=== PATIENT | female | born 1950 | race Caucasian/White ===

== ENCOUNTER 2018-08-19 10:09 | Inpatient (IN) | payer MEDICARE, MEDICAID, SELFPAY ==
[2018-08-07 09:15] VITALS: BMI 25.2
[2018-08-19] VITALS (14 sets, daily range): BP systolic 88–124; BP diastolic 46–85; PULSE 58–103; RESP 14–20; TEMP 35.6–36.8; O2SAT 96–100; BMI 25.2
--- NOTE | 2018-08-19 | DI.RAD.S_ITS ---
PROCEDURE: XR PELVIS 1-2V INDICATIONS: TOTAL RIGHT HIP TECHNIQUE: 1 view of the lower pelvis acquired. COMPARISON: None. FINDINGS: Bones: Patient is status post right hip arthroplasty, with hardware components in expected positions. The hip joint appears congruent. The visualized bony structures appear intact. Soft tissues: Overlying postoperative changes are noted. No suspicious soft tissue densities. IMPRESSION: Post right hip arthroplasty with anatomic right hip alignment. Dictated by: Sean Carrillo M.D. on 08/19/2018 at 16:07 Approved by: Sean Carrillo M.D. on 08/19/2018 at 16:08
--- NOTE | 2018-08-19 | DI.RAD.S_ITS ---
PROCEDURE: XR HIP W PEL IF DONE RT 2V INDICATIONS: POST OPERATIVE RIGHT HIP TECHNIQUE: AP pelvis and lateral view of the right hip acquired. COMPARISON: None. FINDINGS: Bones: Patient is status post right hip arthroplasty, with hardware components in expected positions. The hip joint appears congruent. The visualized bony structures appear intact. Soft tissues: Overlying postoperative changes are noted. No suspicious soft tissue densities. IMPRESSION: Post right total hip arthroplasty with anatomic right hip alignment. Dictated by: Sean Carrillo M.D. on 08/19/2018 at 17:22 Approved by: Sean Carrillo M.D. on 08/19/2018 at 17:22
[2018-08-19] MEDS: INSULIN REGULAR 100 UNIT/ML 3 ML VIAL 6 UNIT SUBCUT (12:45)
[2018-08-19] MEDS: LACTATED RINGERS 1,000 ML 42 ML IV (12:47)
[2018-08-19] MEDS: VANCOMYCIN 1,000 MG/200 ML FROZ.PIGGY 200 MG IV (12:59)
[2018-08-19] MEDS: ACETAMINOPHEN 325 MG TABLET 975 MG PO ×2 (13:01→21:50)
[2018-08-19] MEDS: PREGABALIN 75 MG CAPSULE PO (13:02)
[2018-08-19] MEDS: CELECOXIB 200 MG CAPSULE PO (13:02)
--- NOTE | 2018-08-19 13:02 | PC.NURSE ---
Day shift: Not on AC unit at this time.
--- NOTE | 2018-08-19 13:23 | PM.PREOP ---
Pre-operative Note Interval Note Pre-op Check: Yes History & Physical Reviewed by Physician and Yes Exam Performed Changes: No
--- NOTE | 2018-08-19 13:28 | P.OP_ITS ---
Operative Date/Time/Diagnoses Date of procedure: 08/19/18 Time of procedure: 13:55 Pre-op diagnosis: right hip oa/avn Post-op diagnosis: same Procedure & Clinicians Procedure: Right total hip arthroplasty Same procedure as scheduled: Yes Indications: The patient has had progressively worsening right hip pain with radiographic changes consistent with arthritis. Non-operative management has failed and the patient has requested total hip replacement. The risks, benefits and alternatives to surgery were discussed with the patient prior to proceeding. Risks discussed included, but were not limited to, failure to relieve pain, leg length discrepancy, dislocation, stiffness, infection, nerve damage, deep venous thrombosis, pulmonary embolism, stroke, coma, heart attack, permanent paralysis and , as well as the potential need for eventual revision of the prosthetic. Surgeon: Rebecca Stiles Dipping Machine Operator: Helena Rodas Anesthesia Type: General and Spinal Operative Notes Findings: soft bone, severe osteoarthritis Closure Type: primary Specimen(s): none sent Implants & Drains: Stiles and Nephew R3 54 multihole cup with 1 20mm screw, +0 36 head, anthology SO 7 Applied: drain(s) Estimated Blood Loss (mL): 250 Blood products transfused: none Procedure in detail: The patient was seen in the pre-operative area, where the patient identified the right hip as the operative site and this was marked with my initials. The patient received pre-operative antibiotics and was taken to the operating room and placed on the operative table in the left lateral decubitus position after satisfactory anesthesia. A time clock repairer out was performed. The right leg was prepared from the ankle to the iliac crest with ChloroPrep in the usual fashion and draped through sterile drapes. The hip was approached through an approximately 20 cm incision centered over the greater trochanter and curving gently posteriorly as it went proximally. This was carried sharply to the fascia melissa, which was divided and retracted with a self retaining retractor. The trochanteric bursa was excised with care being taken to avoid the sciatic nerve, which was identified and protected throughout the case. The short external rotators were incised and the capsulomuscular flap was raised and tagged for later repair. The hip was dislocated, and a femoral neck osteotomy performed approximately 15 mm above the lesser trochanter. Retractors were placed around the femur. The canal was opened with a box cutting osteotome, followed by a T handled reamer and a lateralizing reamer. The chili pepper broach was then used, followed by sequential broaching until there was good stability of the broach in the femur. Retractors were placed to expose the acetabulum. The labrum and central soft tissues were removed. There was severe wear of the acetabulum with some loss of the anterosuperior aspect. The true acetabulum was carefully identified and it was reamed until a stable AP engagement was achieved. With a 53 reamer there was good coverage and stability. Reaming was performed initially going up in 2 mm increments, then 1 mm increments until good bite was obtained with an odd sized reamer. The cup 1 mm larger than the last reamer was then inserted using the appropriate anteversion guides. The cup had good stability but there was some mild anterosuperior bone loss and a screw was used to stabilize the cup. An excellent bite was achieved. A trial neutral liner was placed. The broach was placed in the canal. A trial head and neck were then placed and the hip relocated and checked for leg length and stability. An intraoperative film confirmed the component position and no evidence of fracture. The patient was stable in the position of sleep, of squatting, and could be put through a range of motion with 45 degrees internal rotation without dislocation. At 90 degrees flexion, internal rotation to 70 was possible before dislocation. This was felt to be satisfactory and the appropriate components were opened, and the trials were removed. The acetabular liner was impacted into position. The final stem was then impacted into the prepared femoral canal. A brief Betadine soak was performed while trialing with head options. A +0 head was felt to best restore leg length and offset. The hip was meticulously irrigated with normal saline. Final femoral head was impacted onto the stem. The acetabulum was cleared of all material and the hip relocated one final time. The capsulomuscular flap was then repaired to the greater trochanter though an awl hole using the tag sutures. The short external rotators were repaired with a black braided nylon. A deep drain was placed and brought out anteriorly. The fascia melissa was closed with black braided nylon. The subcutaneous layer was closed with barbed sutures and SteriStrips. An Aquacel Ag dressing was applied and the patient was taken to recovery having tolerated the procedure well. Complications: none Condition: stable Disposition: Acute Care Plan for aftercare: The patient will be maintained on a standard total hip replacement protocol with weight bearing as tolerated and Posterior hip precautions. The patient will receive Aspirin and sequential compression devices for DVT prophylaxis. The patient will be discharged home when safe for the home environment.
[2018-08-19] MEDS: CEFAZOLIN 2 GM/100 ML FROZ.PIGGY IV (14:10)
--- NOTE | 2018-08-19 14:47 | SUR.OPER ---
Lateral on padded OR bed. Gel axillary roll. Arms secured on padded armboard with pillow supporting top arm. Padded hip positioner braces x4 - anterior and posterior chest and pelvis. Additional gel pad used anterior pelvis. Gel pad under bottom leg from knee to foot and secured with tape over sheet.
[2018-08-19] MEDS: BUPIVACAINE 0.25% W/ EPI VIAL 50 ML INJ (14:51)
[2018-08-19] MEDS: BUPIVACAINE LIPOSOME 266 MG/20 ML VIAL INJ (14:51)
[2018-08-19] MEDS: POVIDONE-IODINE 15 ML, SODIUM CHLORIDE 0.9% 250 ML TOP (14:52)
--- NOTE | 2018-08-19 18:03 | PM.CN ---
History of Present Illness Date Patient Seen: 08/19/18 Time Patient Seen: 18:04 Chief complaint: total hip arthroplasty right [id number] Reason for consult: uncontrolled IDDM Requesting provider: Rebecca Stiles Narrative: - THIS IS A 68-YEAR-OLD FEMALE FOR PAST MEDICAL HISTORY SIGNIFICANT FOR CAD, HYPERTENSION, INSULIN-DEPENDENT DIABETES, COPD, POSSIBLE HEART FAILURE AND OSTEOARTHRITIS. - PATIENT WAS ADMITTED TO THE HOSPITAL FOR RIGHT HIP REPLACEMENT DUE TO SEVERE JOINT DEGENERATION FROM OSTEOARTHRITIS. - WE ARE CONSULTED ON THE CASE DUE TO UNCONTROLLED DIABETES. REPORTEDLY PATIENT HEMOGLOBIN A1C WENT UP FROM 7-9. - HOWEVER ACCORDING TO THE PATIENT, AT HOME HER BLOOD SUGAR HAS BEEN RUNNING AROUND THE 150S. - SHE DENIES ANY POLYURIA OR POLYDIPSIA. NO CHANGE IN APPETITE. SHE STATED THAT SHE IS COMPLIANT. - SHE REPORTED THAT THE SHE DOES NOT DRINK ALCOHOL. SHE QUIT TOBACCO USE ABOUT 3 MONTHS AGO SO - SHE ALSO REPORTED THAT SHE WAS TOLD SHE HAD HEART FAILURE ABOUT 3 MONTHS AGO WELL. SHE DOES HAVE A AUTO INSPECTION SPECIALIST THAT SHE FOLLOWS WITH OUTPATIENT - AT THIS TIME SHE IS IN HER ROOM. SHE IS COMFORTABLE. SHE DENIES ANY SIGNIFICANT DISCOMFORT. - SHE HAD NO OTHER COMPLAINTS. [facility] Medical History Bed sore (Acute) COPD (chronic obstructive pulmonary disease) (Acute) Cataract fragments in both eyes following surgery (Acute) Chronic right hip pain (Acute) Constipation (Acute) Diarrhea (Acute) Echocardiogram abnormal (Acute ~11/27/17) Environmental allergies (Acute) Essential hypertension (Acute) Fatigue (Acute) Former smoker (Acute) Heart failure (Acute) History of UTI (Acute) History of pneumonia (Acute) Hyperlipidemia (Acute) terminal gauger supervisor (current) use of insulin (Acute) NYHA Class III cardiovascular function (Acute) Nausea (Acute) Nonischemic cardiomyopathy (Acute) Primary localized osteoarthrosis of pelvic region (Acute) Rash (Acute) Type 2 diabetes mellitus without complication (Acute) Unexplained weight gain (Acute) Unilateral primary osteoarthritis, right hip (Acute) Weakness (Acute) Surgical History History of (Acute) History of cardiac catheterization (Acute ~01/2018) History of tonsillectomy (Acute) Social History household members: none Smoking Status: Former smoker alcohol intake: never Meds Home Medications Medication Instructions Recorded Confirmed Type Lactobac 40-Bifido 3-S.thermop 1 cap PO DAILY 08/07/18 08/07/18 History [Probiotic] albuterol sulfate [Ventolin HFA] 2 inh INHALATION Q3-4H PRN 08/07/18 08/19/18 History atorvastatin [Lipitor] 40 mg PO BEDTIME 08/07/18 08/19/18 History budesonide-formoterol 2 puff INHALATION BID 08/07/18 08/19/18 History calcium carbonate [Calcium 600] 1 tab PO DAILY 08/07/18 08/07/18 History cholecalciferol (vitamin D3) 2,000 unit PO DAILY 08/07/18 08/07/18 History [Vitamin D3] furosemide 20 mg PO DAILY 08/07/18 08/19/18 History furosemide 40 mg PO DAILY PRN 08/07/18 08/19/18 History insulin aspart U-100 10 unit SUBCUT DAILY 08/07/18 08/19/18 History insulin glargine 60 unit SUBCUT DAILY 08/07/18 08/19/18 History lisinopril 5 mg PO BID 08/07/18 08/19/18 History metoprolol succinate 100 mg PO BID 08/07/18 08/19/18 History omega 5-pep-ndr-fish oil [Fish Oil] 1 cap PO DAILY 08/07/18 08/07/18 History ondansetron HCl 4 mg PO PRN PRN 08/07/18 08/19/18 History spironolactone 25 mg PO DAILY 08/07/18 08/19/18 History tiotropium bromide [Spiriva with 1 cap INHALATION DAILY 08/07/18 08/19/18 History HandiHaler] tramadol 50 - 100 mg PO Q8H PRN 08/07/18 08/19/18 History Allergies Allergy/AdvReac Type Severity Reaction Status Date / Time digoxin Allergy Severe Throat Verified 08/07/18 11:04 closes, coughs Review of Systems Review of Systems All systems reviewed & are unremarkable except as noted in HPI and below Exam Vital Signs (past 8 hours): - 08/19/18 12:27 08/19/18 16:41 08/19/18 16:45 Temperature 98.2 F 97.2 F L Pulse Rate 82 67 66 Respiratory Rate 16 14 15 Blood Pressure 124/64 103/53 L 88/46 L Pulse Oximetry 96 98 99 08/19/18 16:50 08/19/18 17:04 08/19/18 17:25 Temperature 96.1 F L Pulse Rate 79 71 64 Respiratory Rate 15 16 16 Blood Pressure 98/55 L 102/59 L 119/85 Pulse Oximetry 99 98 99 08/19/18 17:45 Temperature 96.5 F L Pulse Rate 64 Respiratory Rate 16 Blood Pressure 105/58 L Pulse Oximetry 96 Oxygen Delivery Method Room Air Narrative Exam Narrative: NO ACUTE DISTRESS. PATIENT IS ALERT ORIENTED X3. VITAL SIGNS STABLE HEAD ATRAUMATIC NORMOCEPHALIC NECK : SUPPLE WITHOUT ADENOPATHY EYE: EOMI, PERRLA, NORMAL CONJUNCTIVA CHEST: REGULAR RATE.. NO RUBS. PMI IS NON DISPLACED. NORMAL S1-S2; NO HEAVE PULMONARY: DECREASED BS OVER THE BASES. MILD BIBASILAR CRACKLES NOTED; NO INCREASED DULLNESS TO PERCUSSION; NO WHEEZING ABDOMEN: SOFT. NONTENDER. BOWEL SOUNDS ARE PRESENT IN ALL 4 QUADRANT. NO GUARDING. NO MASS. EXTREMITIES: 1+ EDEMA. NONPITTING. NO CYANOSIS CLUBBING NOTED. A TONY DRAIN NOTED TO THE RIGHT HIP. SOME REDNESS NOTED AT THE SITE; BLOODY DRAINAGE NEURO: CRANIAL NERVES 2-12 GROSSLY INTACT. NO FOCAL NEUROLOGICAL DEFICIT NOTED. MSK: EXPECTED, DISCOMFORT WITH PASSIVE AND ACTIVE RANGE OF MOTION ON THE RIGHT. NO JOINT EFFUSION TO THE OTHER EXTREMITIES. ABLE TO MOVE ALL EXTREMITIES WITHOUT DIFFICULTIES SKIN: NORMAL FOR ETHNICITY; NO ECCHYMOSIS. NO LESION. GOOD TURGOR.; NO RASHES ; REDNESS NOTED ON THE RIGHT HIP. THERE IS A DRESSING ALSO NOTED COVERING A CLOSE SURGICAL INCISION. : NORMAL EXTERNAL GENITALIA. PSYCH : APPROPRIATE MOOD AND AFFECT. ALERT AWAKE ORIENTED X3 Objective Labs Labs: PRIOR LABS WERE REVIEWED AND ARE STABLE Assessment & Plan Plan: Assessment/Plan Narrative: STATUS POST RIGHT HIP TOTAL ARTHROPLASTY. THIS IS BEING MANAGED BY SURGERY. WILL MONITOR FOR SIGN OF ACUTE COMPLICATIONS. 5 W'S UNCONTROLLED DIABETES. HEMOGLOBIN A1C IS ABOUT 9. WE WILL RESTART ON BASAL INSULIN ONCE ABLE TO TOLERATE P.O. WE WILL ORDER INSULIN SLIDING SCALE. STRICT BLOOD SUGAR CONTROL DIABETIC DIET; CONSULT ASSURANCE ANALYST INDICATED. CONSULT SCHOOL AIDE IF NEEDED OBESITY. OUTPATIENT MANAGEMENT. LIFESTYLE CHANGES WERE RECOMMENDED COPD PER HISTORY. NO SIGN OR SYMPTOM OF ACUTE EXACERBATION. DUONEB TREATMENT NEEDED; SERIAL CHEST X-RAY OR ABG TO FOLLOW INDICATED POSSIBLE CHF PER HISTORY. LAST ECHOCARDIOGRAM RESULTS ON FILE SHOWING AN EJECTION FRACTION OF ABOUT 65%. THERE IS NO SIGNIFICANT VALVULOPATHY. NOT SURE OF THE ANAHEIM OF THIS DIAGNOSIS; THIS IS A NEW A POSSIBILITY PATIENT COULD HAVE HEART FAILURE WITH PRESERVED SYSTOLIC FUNCTION OR DIASTOLIC HEART FAILURE; MONITOR CLOSELY. KEEP ON TELE AT ALL TIME. STRICT I&OS. DAILY WEIGHT WITH SAME SCALE. POSSIBLE CAD PER HISTORY. TREATMENT ABOVE. HYPERTENSION PER HISTORY. CONTINUE HOME MEDICATIONS. PRN MEDICATIONS ARE INDICATED THANK YOU VERY MUCH FOR THIS CONSULT. WE WILL GLADLY FOLLOW WITH YOU.
--- NOTE | 2018-08-19 18:14 | P.CONS_ITS ---
History of Present Illness Date Patient Seen: 08/19/18 Time Patient Seen: 18:04 Chief complaint: total hip arthroplasty right [id number] Reason for consult: uncontrolled IDDM Requesting provider: Rebecca Stiles Narrative: - THIS IS A 68-YEAR-OLD FEMALE FOR PAST MEDICAL HISTORY SIGNIFICANT FOR CAD, HYPERTENSION, INSULIN-DEPENDENT DIABETES, COPD, POSSIBLE HEART FAILURE AND OSTEOARTHRITIS. - PATIENT WAS ADMITTED TO THE HOSPITAL FOR RIGHT HIP REPLACEMENT DUE TO SEVERE JOINT DEGENERATION FROM OSTEOARTHRITIS. - WE ARE CONSULTED ON THE CASE DUE TO UNCONTROLLED DIABETES. REPORTEDLY PATIENT HEMOGLOBIN A1C WENT UP FROM 7-9. - HOWEVER ACCORDING TO THE PATIENT, AT HOME HER BLOOD SUGAR HAS BEEN RUNNING AROUND THE 150S. - SHE DENIES ANY POLYURIA OR POLYDIPSIA. NO CHANGE IN APPETITE. SHE STATED THAT SHE IS COMPLIANT. - SHE REPORTED THAT THE SHE DOES NOT DRINK ALCOHOL. SHE QUIT TOBACCO USE ABOUT 3 MONTHS AGO SO - SHE ALSO REPORTED THAT SHE WAS TOLD SHE HAD HEART FAILURE ABOUT 3 MONTHS AGO WELL. SHE DOES HAVE A PLANT CLERK THAT SHE FOLLOWS WITH OUTPATIENT - AT THIS TIME SHE IS IN HER ROOM. SHE IS COMFORTABLE. SHE DENIES ANY SIGNIFICANT DISCOMFORT. - SHE HAD NO OTHER COMPLAINTS. [facility] Medical History Bed sore (Acute) COPD (chronic obstructive pulmonary disease) (Acute) Cataract fragments in both eyes following surgery (Acute) Chronic right hip pain (Acute) Constipation (Acute) Diarrhea (Acute) Echocardiogram abnormal (Acute ~11/27/17) Environmental allergies (Acute) Essential hypertension (Acute) Fatigue (Acute) Former smoker (Acute) Heart failure (Acute) History of UTI (Acute) History of pneumonia (Acute) Hyperlipidemia (Acute) intermediate card tender (current) use of insulin (Acute) NYHA Class III cardiovascular function (Acute) Nausea (Acute) Nonischemic cardiomyopathy (Acute) Primary localized osteoarthrosis of pelvic region (Acute) Rash (Acute) Type 2 diabetes mellitus without complication (Acute) Unexplained weight gain (Acute) Unilateral primary osteoarthritis, right hip (Acute) Weakness (Acute) Surgical History History of (Acute) History of cardiac catheterization (Acute ~01/2018) History of tonsillectomy (Acute) Social History household members: none Smoking Status: Former smoker alcohol intake: never Meds Home Medications Medication Instructions Recorded Confirmed Type Lactobac 40-Bifido 3-S.thermop 1 cap PO DAILY 08/07/18 08/07/18 History [Probiotic] albuterol sulfate [Ventolin HFA] 2 inh INHALATION Q3-4H PRN 08/07/18 08/19/18 History atorvastatin [Lipitor] 40 mg PO BEDTIME 08/07/18 08/19/18 History budesonide-formoterol 2 puff INHALATION BID 08/07/18 08/19/18 History calcium carbonate [Calcium 600] 1 tab PO DAILY 08/07/18 08/07/18 History cholecalciferol (vitamin D3) 2,000 unit PO DAILY 08/07/18 08/07/18 History [Vitamin D3] furosemide 20 mg PO DAILY 08/07/18 08/19/18 History furosemide 40 mg PO DAILY PRN 08/07/18 08/19/18 History insulin aspart U-100 10 unit SUBCUT DAILY 08/07/18 08/19/18 History insulin glargine 60 unit SUBCUT DAILY 08/07/18 08/19/18 History lisinopril 5 mg PO BID 08/07/18 08/19/18 History metoprolol succinate 100 mg PO BID 08/07/18 08/19/18 History omega 5-wgx-edp-fish oil [Fish Oil] 1 cap PO DAILY 08/07/18 08/07/18 History ondansetron HCl 4 mg PO PRN PRN 08/07/18 08/19/18 History spironolactone 25 mg PO DAILY 08/07/18 08/19/18 History tiotropium bromide [Spiriva with 1 cap INHALATION DAILY 08/07/18 08/19/18 History HandiHaler] tramadol 50 - 100 mg PO Q8H PRN 08/07/18 08/19/18 History Allergies Allergy/AdvReac Type Severity Reaction Status Date / Time digoxin Allergy Severe Throat Verified 08/07/18 11:04 closes, coughs Review of Systems Review of Systems All systems reviewed & are unremarkable except as noted in HPI and below Exam Vital Signs (past 8 hours): - 08/19/18 12:27 08/19/18 16:41 08/19/18 16:45 Temperature 98.2 F 97.2 F L Pulse Rate 82 67 66 Respiratory Rate 16 14 15 Blood Pressure 124/64 103/53 L 88/46 L Pulse Oximetry 96 98 99 08/19/18 16:50 08/19/18 17:04 08/19/18 17:25 Temperature 96.1 F L Pulse Rate 79 71 64 Respiratory Rate 15 16 16 Blood Pressure 98/55 L 102/59 L 119/85 Pulse Oximetry 99 98 99 08/19/18 17:45 Temperature 96.5 F L Pulse Rate 64 Respiratory Rate 16 Blood Pressure 105/58 L Pulse Oximetry 96 Oxygen Delivery Method Room Air Narrative Exam Narrative: NO ACUTE DISTRESS. PATIENT IS ALERT ORIENTED X3. VITAL SIGNS STABLE HEAD ATRAUMATIC NORMOCEPHALIC NECK : SUPPLE WITHOUT ADENOPATHY EYE: EOMI, PERRLA, NORMAL CONJUNCTIVA CHEST: REGULAR RATE.. NO RUBS. PMI IS NON DISPLACED. NORMAL S1-S2; NO HEAVE PULMONARY: DECREASED BS OVER THE BASES. MILD BIBASILAR CRACKLES NOTED; NO INCREASED DULLNESS TO PERCUSSION; NO WHEEZING ABDOMEN: SOFT. NONTENDER. BOWEL SOUNDS ARE PRESENT IN ALL 4 QUADRANT. NO GUARDING. NO MASS. EXTREMITIES: 1+ EDEMA. NONPITTING. NO CYANOSIS CLUBBING NOTED. A TONY DRAIN NOTED TO THE RIGHT HIP. SOME REDNESS NOTED AT THE SITE; BLOODY DRAINAGE NEURO: CRANIAL NERVES 2-12 GROSSLY INTACT. NO FOCAL NEUROLOGICAL DEFICIT NOTED. MSK: EXPECTED, DISCOMFORT WITH PASSIVE AND ACTIVE RANGE OF MOTION ON THE RIGHT. NO JOINT EFFUSION TO THE OTHER EXTREMITIES. ABLE TO MOVE ALL EXTREMITIES WITHOUT DIFFICULTIES SKIN: NORMAL FOR ETHNICITY; NO ECCHYMOSIS. NO LESION. GOOD TURGOR.; NO RASHES ; REDNESS NOTED ON THE RIGHT HIP. THERE IS A DRESSING ALSO NOTED COVERING A CLOSE SURGICAL INCISION. : NORMAL EXTERNAL GENITALIA. PSYCH : APPROPRIATE MOOD AND AFFECT. ALERT AWAKE ORIENTED X3 Objective Labs Labs: PRIOR LABS WERE REVIEWED AND ARE STABLE Assessment & Plan Plan: Assessment/Plan Narrative: STATUS POST RIGHT HIP TOTAL ARTHROPLASTY. THIS IS BEING MANAGED BY SURGERY. WILL MONITOR FOR SIGN OF ACUTE COMPLICATIONS. 5 W'S UNCONTROLLED DIABETES. HEMOGLOBIN A1C IS ABOUT 9. WE WILL RESTART ON BASAL INSULIN ONCE ABLE TO TOLERATE P.O. WE WILL ORDER INSULIN SLIDING SCALE. STRICT BLOOD SUGAR CONTROL DIABETIC DIET; CONSULT NUT PROCESS HELPER INDICATED. CONSULT FOOD SAFETY DIRECTOR IF NEEDED OBESITY. OUTPATIENT MANAGEMENT. LIFESTYLE CHANGES WERE RECOMMENDED COPD PER HISTORY. NO SIGN OR SYMPTOM OF ACUTE EXACERBATION. DUONEB TREATMENT NEEDED; SERIAL CHEST X-RAY OR ABG TO FOLLOW INDICATED POSSIBLE CHF PER HISTORY. LAST ECHOCARDIOGRAM RESULTS ON FILE SHOWING AN EJECTION FRACTION OF ABOUT 65%. THERE IS NO SIGNIFICANT VALVULOPATHY. NOT SURE OF THE CONVERSE OF THIS DIAGNOSIS; THIS IS A NEW A POSSIBILITY PATIENT COULD HAVE HEART FAILURE WITH PRESERVED SYSTOLIC FUNCTION OR DIASTOLIC HEART FAILURE; MONITOR CLOSELY. KEEP ON TELE AT ALL TIME. STRICT I&OS. DAILY WEIGHT WITH SAME SCALE. POSSIBLE CAD PER HISTORY. TREATMENT ABOVE. HYPERTENSION PER HISTORY. CONTINUE HOME MEDICATIONS. PRN MEDICATIONS ARE INDICATED THANK YOU VERY MUCH FOR THIS CONSULT. WE WILL GLADLY FOLLOW WITH YOU.
[2018-08-19] MEDS: LACTATED RINGERS 1,000 ML 125 ML IV (19:11)
[2018-08-19] MEDS: ATORVASTATIN 20 MG TABLET 40 MG PO (21:50)
[2018-08-19] MEDS: ASPIRIN EC 81 MG TABLET PO (21:50)
[2018-08-19] MEDS: DOCUSATE 100 MG CAPSULE PO (21:53)
[2018-08-20] VITALS (10 sets, daily range): BP systolic 80–116; BP diastolic 42–52; PULSE 69–108; RESP 15–20; TEMP 36.4–37.1; O2SAT 94–100
[2018-08-20] MEDS: CEFAZOLIN 2 GM/100 ML FROZ.PIGGY IV ×2 (00:17→09:53)
[2018-08-20] MEDS: LACTATED RINGERS 1,000 ML 125 ML IV (00:40)
[2018-08-20 05:55] LABS: Add Manual Diff / Slide Review NO; Basophils Percent Auto 0.5 % (0-2); Eosinophils Percent Auto 0.8 % (2-4); Hematocrit 37.7 % (36-46); Hemoglobin 12.6 g/dL (12.0-16.0); Lymphocytes Percent Auto 15.3 % (25-40); Mean Corpuscular HGB Conc 33.4 % (30-36); Mean Corpuscular Hemoglobin 29.9 PG (26-34); Mean Corpuscular Volume 89.8 fL (80-100); Monocytes Percent Auto 4.3 % (3-14); Neutrophils Absolute Auto 6100 /uL (3000-5900); Neutrophils Percent Auto 79.1 % (50-75); Platelet Count 265 X10^3/uL (150-400); Red Cell Distribution Width 14.3 % (11.6-14.8); White Blood Cell Count 7.7 X10^3/uL (4.5-11.0)
[2018-08-20 06:18] LABS: Alanine Aminotransferase 34 IU/L (9-52); Albumin 3.3 g/dL (3.5-5.0); Albumin Globulin Ratio 1.2 (1.0-2.8); Alkaline Phosphatase 79 U/L (38-126); Aspartate Aminotransferase 20 IU/L (14-36); BUN Creatinine Ratio 33.3 (6-22); Bilirubin Total 0.5 mg/dL (0.2-1.3); Blood Urea Nitrogen 20 mg/dL (7-17); Calcium 8.3 mg/dL (8.4-10.2); Carbon Dioxide 27 mmol/L (22-32); Chloride 100 mmol/L (98-107); Estimated Glomerular Filt Rate > 60.0 mL/min (>60); Globulin 2.8 g/dL (1.7-4.1); Glucose 170 mg/dL (80-110); HEMOLYSIS < 15 (0-50); Magnesium 1.9 mg/dL (1.6-2.3); Potassium 4.8 mmol/L (3.4-5.1); Sodium 136 mmol/L (137-145); Total Protein 6.1 g/dL (6.3-8.2)
[2018-08-20] MEDS: TIOTROPIUM BROMIDE 18 MCG INHALER INH (08:06)
--- NOTE | 2018-08-20 08:12 | PC.NURSE ---
Pt alert and oriented offers no overt c/o of pain. Surgical site cdi. Picco and HV intact and patent.
--- NOTE | 2018-08-20 09:05 | PM.PNPO.1 ---
Subjective Date Patient Seen: 08/20/18 Time Patient Seen: 09:06 Interval history: POD 1 s/p right tka with Dr. Stiles. Patient's pain is well controlled. Patient is complaining of some dizziness but states she thinks it is from not wearing her glasses. Patient lives alone but does have a caregiver that comes to her home. She plans to go to [facility] after surgery. Patient is diabetic and blood sugar this morning was 160. Exam Vital Signs (past 8 hours): - 08/20/18 04:14 08/20/18 08:11 Temperature 97.8 F Pulse Rate 69 108 H Respiratory Rate 20 15 Blood Pressure 101/46 L Pulse Oximetry 100 98 Oxygen Delivery Method Room Air Narrative Exam Narrative: Patient lying in bed in no acute distress. She is alert oriented x3. Dressing on right hip is CDI. Hemovac drain in place. Calves are soft, compressible, nontender bilaterally. Sensation intact light touch throughout bilateral lower extremities. Objective Labs Result Diagrams: 08/20/18 05:43 08/20/18 05:43 Labs: Laboratory Results - last 24 hr 08/20/18 08/20/18 05:43 05:43 WBC 7.7 RBC 4.20 Hgb 12.6 Hct 37.7 MCV 89.8 MCH 29.9 MCHC 33.4 RDW 14.3 Plt Count 265 Neut % (Auto) 79.1 H Lymph % (Auto) 15.[address] [place] % (Auto) 4.3 Eos % (Auto) 0.8 L Baso % (Auto) 0.5 Neut # (Auto) 6100 H Sodium 136 L Potassium 4.8 Chloride 100 Carbon Dioxide 27 BUN 20 H Creatinine 0.60 Estimated GFR > 60.0 BUN/Creatinine Ratio 33.3 H Glucose 170 H Calcium 8.3 L Magnesium 1.9 Total Bilirubin 0.5 AST 20 ALT 34 Alkaline Phosphatase 79 Total Protein 6.1 L Albumin 3.3 L Globulin 2.8 Albumin/Globulin Ratio 1.2 Assessment & Plan Post-op (1) S/P total hip arthroplasty: Current Visit: Yes Status: Acute Postoperative Procedures Operation Date: 08/19/18 13:45 Actual Procedures Side Surgeon p Total Hip Arthroplasty Right Rebecca Stiles MD Patient will mobilize with physical therapy today. Posterior hip precautions reviewed with patient. Continue ASA for DVT prophylaxis. Hospitalist is managing patient's multiple comorbidities. Patient will likely discharge in 2 days to [facility]. Quality VTE Deep Vein Thrombosis/Pulmonary Embolism Present on Admission: No
--- NOTE | 2018-08-20 09:08 | P.PN_ITS ---
Subjective Date Patient Seen: 08/20/18 Time Patient Seen: 09:06 Interval history: POD 1 s/p right tka with Dr. Stiles. Patient's pain is well controlled. Patient is complaining of some dizziness but states she thinks it is from not wearing her glasses. Patient lives alone but does have a caregiver that comes to her home. She plans to go to [facility] after surgery. Patient is diabetic and blood sugar this morning was 160. Exam Vital Signs (past 8 hours): - 08/20/18 04:14 08/20/18 08:11 Temperature 97.8 F Pulse Rate 69 108 H Respiratory Rate 20 15 Blood Pressure 101/46 L Pulse Oximetry 100 98 Oxygen Delivery Method Room Air Narrative Exam Narrative: Patient lying in bed in no acute distress. She is alert oriented x3. Dressing on right hip is CDI. Hemovac drain in place. Calves are soft, compressible, nontender bilaterally. Sensation intact light touch throughout bilateral lower extremities. Objective Labs Result Diagrams: 08/20/18 05:43 08/20/18 05:43 Labs: Laboratory Results - last 24 hr 08/20/18 08/20/18 05:43 05:43 WBC 7.7 RBC 4.20 Hgb 12.6 Hct 37.7 MCV 89.8 MCH 29.9 MCHC 33.4 RDW 14.3 Plt Count 265 Neut % (Auto) 79.1 H Lymph % (Auto) 15.3 L [place] % (Auto) 4.3 Eos % (Auto) 0.8 L Baso % (Auto) 0.5 Neut # (Auto) 6100 H Sodium 136 L Potassium 4.8 Chloride 100 Carbon Dioxide 27 BUN 20 H Creatinine 0.60 Estimated GFR > 60.0 BUN/Creatinine Ratio 33.3 H Glucose 170 H Calcium 8.3 L Magnesium 1.9 Total Bilirubin 0.5 AST 20 ALT 34 Alkaline Phosphatase 79 Total Protein 6.1 L Albumin 3.3 L Globulin 2.8 Albumin/Globulin Ratio 1.2 Assessment & Plan Post-op (1) S/P total hip arthroplasty: Current Visit: Yes Status: Acute Postoperative Procedures Operation Date: 08/19/18 13:45 Actual Procedures Side Surgeon p Total Hip Arthroplasty Right Rebecca Stiles MD Patient will mobilize with physical therapy today. Posterior hip precautions reviewed with patient. Continue ASA for DVT prophylaxis. Hospitalist is managing patient's multiple comorbidities. Patient will likely discharge in 2 days to [facility]. Quality VTE Deep Vein Thrombosis/Pulmonary Embolism Present on Admission: No
[2018-08-20] MEDS: ACETAMINOPHEN 325 MG TABLET 975 MG PO ×3 (09:52→20:39)
[2018-08-20] MEDS: ASPIRIN EC 81 MG TABLET PO ×2 (09:52→20:40)
[2018-08-20] MEDS: CHOLECALCIFEROL (VITAMIN D3) 1,000 UNIT TABLET 2000 UNIT PO (09:53)
[2018-08-20] MEDS: DOCUSATE 100 MG CAPSULE PO ×2 (09:54→20:42)
[2018-08-20] MEDS: LISINOPRIL 5 MG TABLET PO (09:55)
[2018-08-20] MEDS: METOPROLOL ER 50 MG TABLET 100 MG PO (09:55)
[2018-08-20] MEDS: SPIRONOLACTONE 25 MG TABLET PO (09:56)
[2018-08-20] MEDS: IBUPROFEN 600 MG TABLET PO (09:56)
[2018-08-20] MEDS: INSULIN ASPART 100 UNIT/ML INSULN PEN 10 UNIT SUBCUT (09:58)
[2018-08-20] MEDS: INSULIN GLARGINE 100 UNIT/ML 3ML PEN 60 UNIT SUBCUT (10:00)
--- NOTE | 2018-08-20 10:08 | CM.DPC ---
Referral faxed to Viviana Powell and clinicals faxed to LEEANNE Scott
--- NOTE | 2018-08-20 10:14 | P.DS_ITS ---
History of Present Illness Date Patient Seen: 08/20/18 Time Patient Seen: 09:12 Chief complaint: total hip arthroplasty right [id number] Discharge Providers Date of admission: 08/19/18 10:09 Primary care physician: Umesh Duncan MD Consults: 08/07/18 11:37 Consult to Anesthesiology Routine Comment: Anes. Review: Surgeon Request - Cardiac Consulting Provider: Anesthesiologist Reason for consultation: Clearance provided 08/19/18 11:59 Consult to Anesthesiology Routine Comment: Consulting Provider: Anesthesiologist Reason for consultation: Regional block for post operative pain control 08/19/18 17:35 Consult to Discharge Planning Routine Comment: wants ecf Consult to Physical Therapy Evaluate & Treat Comment: posterior Physician Instructions: post op SHEREE protocol Consult to Respiratory Therapy Evaluate & Treat Comment: Physician Instructions: Evaluate and treat 08/20/18 09:12 Consult to Occupational Therapy Evaluate & Treat Comment: Physician Instructions: Evaluate and treat Discharge provider: Helena Rodas PA-C Exam Vital Signs (past 8 hours): - 08/20/18 04:14 08/20/18 08:11 Temperature 97.8 F Pulse Rate 69 108 H Respiratory Rate 20 15 Blood Pressure 101/46 L Pulse Oximetry 100 98 Oxygen Delivery Method Room Air Objective Labs Result Diagrams: 08/20/18 05:43 08/20/18 05:43 Labs: Laboratory Results - last 24 hr 08/20/18 08/20/18 05:43 05:43 WBC 7.7 RBC 4.20 Hgb 12.6 Hct 37.7 MCV 89.8 MCH 29.9 MCHC 33.4 RDW 14.3 Plt Count 265 Neut % (Auto) 79.1 H Lymph % (Auto) 15.3 L [place] % (Auto) 4.3 Eos % (Auto) 0.8 L Baso % (Auto) 0.5 Neut # (Auto) 6100 H Sodium 136 L Potassium 4.8 Chloride 100 Carbon Dioxide 27 BUN 20 H Creatinine 0.60 Estimated GFR > 60.0 BUN/Creatinine Ratio 33.3 H Glucose 170 H Calcium 8.3 L Magnesium 1.9 Total Bilirubin 0.5 AST 20 ALT 34 Alkaline Phosphatase 79 Total Protein 6.1 L Albumin 3.3 L Globulin 2.8 Albumin/Globulin Ratio 1.2 Discharge Plan Discharge Med Rec/Prescriptions Prescriptions: No Action furosemide 40 mg Tablet 40 mg PO DAILY PRN (Reason: Weight Gain) RF: 0 ondansetron HCl 4 mg Tablet 4 mg PO PRN PRN (Reason: Nausea) RF: 0 metoprolol succinate 100 mg Tablet Extended Release 24 Hr 100 mg PO BID RF: 0 tramadol 50 mg Tablet 50 - 100 mg PO Q8H PRN (Reason: Pain) RF: 0 spironolactone 25 mg Tablet 25 mg PO DAILY RF: 0 lisinopril 5 mg Tablet 5 mg PO BID RF: 0 albuterol sulfate [Ventolin HFA] 90 mcg/actuation Hfa Aerosol Inhaler 2 inh Inhalation Q3-4H PRN (Reason: Wheezing) RF: 0 insulin aspart U-100 100 unit/mL Insulin Pen 10 unit SUBCUT DAILY RF: 0 tiotropium bromide [Spiriva with HandiHaler] 18 mcg Capsule, W/Inhalation Device 1 cap INHALATION DAILY RF: 0 budesonide-formoterol 160-4.5 mcg/actuation Hfa Aerosol Inhaler 2 puff INHALATION BID RF: 0 insulin glargine 100 unit/mL (3 mL) Insulin Pen 60 unit SUBCUT DAILY RF: 0 atorvastatin [Lipitor] 40 mg Tablet 40 mg PO BEDTIME RF: 0 calcium carbonate [Calcium 600] 600 mg calcium (1,500 mg) Tablet 1 tab PO DAILY RF: 0 furosemide 20 mg Tablet 20 mg PO DAILY RF: 0 cholecalciferol (vitamin D3) [Vitamin D3] 2,000 unit Capsule 2,000 unit PO DAILY RF: 0 omega 1-ink-rio-fish oil [Fish Oil] 1,000 mg (120 mg-180 mg) Capsule 1 cap PO DAILY RF: 0 Lactobac 40-Bifido 3-S.thermop [Probiotic] 100 billion cell Capsule 1 cap PO DAILY RF: 0 Discharge Data Primary Care Provider: Umesh Duncan Attending Provider: Rebecca Stiles Admit Date/Time: 08/19/18 10:09 Quality VTE Deep Vein Thrombosis/Pulmonary Embolism Present on Admission: No
[2018-08-20] MEDS: TRAMADOL 50 MG TABLET PO ×2 (10:22→23:44)
[2018-08-20] MEDS: FUROSEMIDE 20 MG TABLET PO (10:24)
--- NOTE | 2018-08-20 10:35 | PT.IIE ---
Current Diagnoses Unilateral primary osteoarthritis, right hip (08/19/18) Pain in right hip (08/19/18) Presence of unspecified artificial hip joint (08/19/18) Surgery Performed Operation Date: 08/19/18 13:45 Actual Procedures p Total Hip Arthroplasty(Right) - Rebecca Stiles MD Surgical History (Last Reviewed 08/19/18 @ 18:09 by Preston Gonzalez DO) History of (Acute) History of cardiac catheterization (Acute ~01/2018) History of tonsillectomy (Acute) Medical History (Last Reviewed 08/19/18 @ 18:09 by Preston Gonzalez DO) Bed sore (Acute) COPD (chronic obstructive pulmonary disease) (Acute) Cataract fragments in both eyes following surgery (Acute) Chronic right hip pain (Acute) Constipation (Acute) Diarrhea (Acute) Echocardiogram abnormal (Acute ~11/27/17) Environmental allergies (Acute) Essential hypertension (Acute) Fatigue (Acute) Former smoker (Acute) Heart failure (Acute) History of UTI (Acute) History of pneumonia (Acute) Hyperlipidemia (Acute) long term care pharmacist (current) use of insulin (Acute) NYHA Class III cardiovascular function (Acute) Nausea (Acute) Nonischemic cardiomyopathy (Acute) Primary localized osteoarthrosis of pelvic region (Acute) Rash (Acute) Type 2 diabetes mellitus without complication (Acute) Unexplained weight gain (Acute) Unilateral primary osteoarthritis, right hip (Acute) Weakness (Acute) Physical Therapy Inpatient Evaluation/Re-Eval M1 PT/OT-IP Prior Functional Status Start: 08/20/18 12:31 Freq: NEEDED Status: Active Protocol: Document 08/20/18 10:35 AB (Rec: 08/20/18 12:52 AB [id number]) Medical Review Prior Functional Status Medical History Reviewed Yes Communication able to make needs known Mobility and Gait pt stated that she is modified independent with transfers and ambulation and uses 1 SPC on one side and a quad cane on the other side. Activities of Daily Living and IADL's caregiver stated that she assists pt with showers and LB dressng Social History Household Members none Living Arrangements Apartment/Condo Number of Floors (Floors) One Floor Home Environment Standard Height Toilet Tub/Shower Home Equipment Front Wheel Walker Four Wheel Walker Quad Cane Straight Cane Bedside Commode Tub Transfer Bench Grab Bars In Shower Employment Status Retired Additional Social History Comment Pt has 55 hours LEEANNE; caregiver present during PT session; stated that she comes in and Sat for 4-5 hours and that she assists pt with house chores, pt's medical appointments, assists pt with showers M2 PT-IP Current Condition Start: 08/20/18 12:31 Freq: NEEDED Status: Active Protocol: Document 08/20/18 10:35 AB (Rec: 08/20/18 12:52 AB [id number]) Physical Therapy Current Condition Current Condition Evaluation Date 08/20/18 Treatment Diagnosis S/P R SHEREE; difficulty in walking Onset Date 08/19/18 Precautions Posterior Hip Precautions No Hip Flexion > 90 degrees No Hip Internal Rotation No Hip Adduction Weight Bearing Status Weight Bearing Status Weight Bear as Tolerated M3 PT-IP Subjective Start: 08/20/18 12:31 Freq: NEEDED Status: Active Protocol: Document 08/20/18 10:35 AB (Rec: 08/20/18 12:52 AB [id number]) Subjective Physical Therapy Visit Type Type Initial Evaluation Visit Start Time 10:35 Visit Stop Time 11:23 Total Visit Minutes 48 Number of CHAIN SALES CONSULTANT Visits 0 Physical Therapy Visit Comments Patient Comments pt agreeable to get up Therapy Pain Assessment Pain When Pain Assessed At Rest Pain Present Pain Present Denied Pain M4 PT-IP Mobility and Gait Start: 08/20/18 12:31 Freq: NEEDED Status: Active Protocol: Document 08/20/18 10:35 AB (Rec: 08/20/18 12:52 AB [id number]) PT-Bed Mobility Assessment Supine to Sit Supine to Sit Contact Guard Assistance Sit to Supine Sit to Supine Contact Guard Assistance Scooting Scooting to Edge of Bed Contact Guard Assistance Minimal Assistance PT-Transfer Assessment Sit to and From Stand Sit to and from Stand Minimal Assistance 1 Person Assistance Use of Upper Extremities Equipment Transfer Assistive Device Gait Belt Front Wheeled Walker Orthotic/Prosthetic Devices or Brace: No Comments Mobility Comments BP in supine: 96/51 pt completed supine to sit CGA and cues. c/o slight dizziness. BP: 87/57. pt sat on EOB for ~ 2-3 min and BP checked again: 116/82. pt completed sit to stand min A and cues. c/o dizziness with standing and pt instructed to sit back down. BP checked: 81 /45. pt wanting to use the toilet but due to decrease BP, instructed pt to lay back in bed. nurse informed and recommended pt to use bed chacko at this time. BP checked in supine: 116/42. asked pt if willing to get up again and stated later in the afternoon. Left pt with nursing assisting pt in room Gait Assessment Comments Gait Comments unable at the time due to decrease BP in standing PT-Balance Assessment Sitting Balance and Reactions Static Sitting Balance Ability Good Dynamic Sitting Balance Ability Fair Standing Balance and Reactions Static Standing Balance Ability Fair Dynamic Standing Balance Ability Fair Device Used FWW M5 PT-IP Objective Assessments Start: 08/20/18 12:31 Freq: NEEDED Status: Active Protocol: Document 08/20/18 10:35 AB (Rec: 08/20/18 12:52 AB [id number]) Orientation Orientation/Cognition Level of Alertness Alert Orientation Name Age Place Situation Safety Awareness Decreased Safety Awareness Memory Description Short Term Impaired Residential Impaired Gross Range of Motion Lower Extremity ROM Assessment Within Functional Limits Strength Lower Extremity Strength Assessment Right Impaired Knee 4-/5 Sensation Assessment Sensation Gross Sensation WNL M6 PT-IP Treatment Start: 08/20/18 12:31 Freq: NEEDED Status: Active Protocol: Document 08/20/18 10:35 AB (Rec: 08/20/18 12:52 AB [id number]) Physical Therapy Treatment Exercises Exercises Ankle Pumps Heel Slides Education Education Provided Precautions Weight Bearing Status Post-Op Packet Safety Other Treatments Other Treatment Performed pt requires cues to recall hip precautions M7 PT-IP Assessment and Plan Start: 08/20/18 12:31 Freq: NEEDED Status: Active Protocol: Document 08/20/18 10:35 AB (Rec: 08/20/18 12:52 AB [id number]) PT Summary Assessment and Plan Potential Rehabilitation Potential Good Status of Condition at Evaluation Evolving Summary Impairments Pain ROM Strength Balance Coordination Sensation Tone Cognition Bed Mobility Transfers Gait Activity Tolerance Assessment Summary pt requiring one person assist with mobility and unable to tolerate much activity today with decrease BP in standing. Pt will benefit from SNF rehab to improve strength and mobility prior to d/c home. Goals Bed Mobility Goal Standby Assistance Transfer Goal Standby Assistance Front Wheeled Walker Gait Goal Standby Assistance Front Wheel Walker Gait Distance 100 Days to Meet Goals 3 Frequency of Treatment Frequency Of Treatment Twice a Day Treatment Plan Physical Therapy Treatment Plan Bed Mobility Training Transfer Training Gait Training Therapeutic Exercise Balance Retraining Post Op Education Discharge Planning Hot or Cold Pack Neuromuscular Re-ed Coordination Retraining Manual Therapy Recommendations To Nursing Amount of Assist Needed 1 Person Assist Discharge Recommendations PT Discharge Recommendations SNF Rehab
--- NOTE | 2018-08-20 13:08 | PM.PN.1 ---
Subjective Date Patient Seen: 08/20/18 Time Patient Seen: 13:08 Interval history: NO FEVER OR CHILLS OVERNIGHT MINOR DISCOMFORTS WITH ACT EXPECTED NO CP/SOB NO SIGNIFICANT ISSUES OVERNIGHT Exam Vital Signs (past 8 hours): - 08/20/18 08:11 Pulse Rate 108 H Respiratory Rate 15 Pulse Oximetry 98 Oxygen Delivery Method Room Air Narrative Exam Narrative: NO ACUTE DISTRESS. PATIENT IS ALERT ORIENTED X3. VITAL SIGNS STABLE HEAD ATRAUMATIC NORMOCEPHALIC NECK : SUPPLE WITHOUT ADENOPATHY EYE: EOMI, PERRLA, NORMAL CONJUNCTIVA CHEST: REGULAR RATE.. NO RUBS. PMI IS NON DISPLACED. NORMAL S1-S2; NO HEAVE PULMONARY: DECREASED BS OVER THE BASES. MILD BIBASILAR CRACKLES NOTED; NO INCREASED DULLNESS TO PERCUSSION; NO WHEEZING ABDOMEN: SOFT. NONTENDER. BOWEL SOUNDS ARE PRESENT IN ALL 4 QUADRANT. NO GUARDING. NO MASS. EXTREMITIES: 1+ EDEMA. NONPITTING. NO CYANOSIS CLUBBING NOTED. A TONY DRAIN NOTED TO THE RIGHT HIP. SOME REDNESS NOTED AT THE SITE; BLOODY DRAINAGE NEURO: CRANIAL NERVES 2-12 GROSSLY INTACT. NO FOCAL NEUROLOGICAL DEFICIT NOTED. MSK: EXPECTED, DISCOMFORT WITH PASSIVE AND ACTIVE RANGE OF MOTION ON THE RIGHT. NO JOINT EFFUSION TO THE OTHER EXTREMITIES. ABLE TO MOVE ALL EXTREMITIES WITHOUT DIFFICULTIES SKIN: NORMAL FOR ETHNICITY; NO ECCHYMOSIS. NO LESION. GOOD TURGOR.; NO RASHES ; REDNESS NOTED ON THE RIGHT HIP. THERE IS A DRESSING ALSO NOTED COVERING A CLOSE SURGICAL INCISION. : NORMAL EXTERNAL GENITALIA. PSYCH : APPROPRIATE MOOD AND AFFECT. ALERT AWAKE ORIENTED X3 Objective Labs Result Diagrams: 08/20/18 05:43 08/20/18 05:43 Labs: Laboratory Results - last 24 hr 08/20/18 08/20/18 05:43 05:43 WBC 7.7 RBC 4.20 Hgb 12.6 Hct 37.7 MCV 89.8 MCH 29.9 MCHC 33.4 RDW 14.3 Plt Count 265 Neut % (Auto) 79.1 H Lymph % (Auto) 15.3 L [place] % (Auto) 4.3 Eos % (Auto) 0.8 L Baso % (Auto) 0.5 Neut # (Auto) 6100 H Sodium 136 L Potassium 4.8 Chloride 100 Carbon Dioxide 27 BUN 20 H Creatinine 0.60 Estimated GFR > 60.0 BUN/Creatinine Ratio 33.3 H Glucose 170 H Calcium 8.3 L Magnesium 1.9 Total Bilirubin 0.5 AST 20 ALT 34 Alkaline Phosphatase 79 Total Protein 6.1 L Albumin 3.3 L Globulin 2.8 Albumin/Globulin Ratio 1.2 Assessment & Plan Plan: Assessment/Plan Narrative: IMPRESSION AND PLAN STATUS POST RIGHT HIP TOTAL ARTHROPLASTY. MANAGED BY SURGERY. PATIENT IS CLINICALLY IMPROVED; CONTINUE TO MONITOR FOR SIGN OF ACUTE COMPLICATIONS. 5 W'S UNCONTROLLED DIABETES. HEMOGLOBIN A1C IS ABOUT 9. BASAL INSULIN WILL BE INCREASED BY 4 UNITS A DAY. ORDERED INSULIN SLIDING SCALE. STRICT BLOOD SUGAR CONTROL DIABETIC DIET; CONSULT SUPERVISOR OPENING AND PICKING INDICATED. CONSULT DOUGH BRAKE MACHINE OPERATOR IF NEEDED OBESITY. OUTPATIENT MANAGEMENT. LIFESTYLE CHANGES WERE RECOMMENDED COPD PER HISTORY. NO SIGN OR SYMPTOM OF ACUTE EXACERBATION. DUONEB TREATMENT NEEDED; SERIAL CHEST X-RAY OR ABG TO FOLLOW INDICATED POSSIBLE CHF PER HISTORY. LAST ECHOCARDIOGRAM RESULTS ON FILE SHOWING AN EJECTION FRACTION OF ABOUT 65%. THERE IS NO SIGNIFICANT VALVULOPATHY. NOT SURE OF THE EDGAR OF THIS DIAGNOSIS; THIS IS A NEW A POSSIBILITY PATIENT COULD HAVE HEART FAILURE WITH PRESERVED SYSTOLIC FUNCTION OR DIASTOLIC HEART FAILURE; MONITOR CLOSELY. KEEP ON TELE AT ALL TIME. STRICT I&OS. DAILY WEIGHT WITH SAME SCALE. POSSIBLE CAD PER HISTORY. TREATMENT ABOVE. HYPERTENSION PER HISTORY. CONTINUE HOME MEDICATIONS. PRN MEDICATIONS ARE INDICATED THANK YOU VERY MUCH FOR THIS CONSULT. WE WILL CONTINUE TO GLADLY FOLLOW WITH YOU. Quality VTE Deep Vein Thrombosis/Pulmonary Embolism Present on Admission: No
[2018-08-20] MEDS: INSULIN ASPART 100 UNIT/ML INSULN PEN SUBCUT ×2 (14:24→16:38)
[2018-08-20] MEDS: OXYCODONE IR 5 MG TABLET PO (14:29)
[2018-08-20] MEDS: SODIUM CHLORIDE 0.9% 500 ML IV (15:00)
--- NOTE | 2018-08-20 15:03 | PT.IPTN ---
Current Diagnoses Unilateral primary osteoarthritis, right hip (08/19/18) Pain in right hip (08/19/18) Presence of unspecified artificial hip joint (08/19/18) Surgery Performed Operation Date: 08/19/18 13:45 Actual Procedures p Total Hip Arthroplasty(Right) - Rebecca Stiles MD Physical Therapy Treatment Note M2 PT-IP Current Condition Start: 08/20/18 12:31 Freq: NEEDED Status: Active Protocol: Document 08/20/18 10:35 AB (Rec: 08/20/18 12:52 AB [id number]) Physical Therapy Current Condition Current Condition Evaluation Date 08/20/18 Treatment Diagnosis S/P R SHEREE; difficulty in walking Onset Date 08/19/18 Precautions Posterior Hip Precautions No Hip Flexion > 90 degrees No Hip Internal Rotation No Hip Adduction Weight Bearing Status Weight Bearing Status Weight Bear as Tolerated M3 PT-IP Subjective Start: 08/20/18 12:31 Freq: NEEDED Status: Active Protocol: Document 08/20/18 15:01 AB (Rec: 08/20/18 15:03 AB [id number]) Subjective Physical Therapy Visit Type Notes checked on pt. BP taken in bed with HOB elevated ~ 45 deg . BP on L upper arm: 70/34 checked again: 65/45 informed nurse. pt without any complaints. nurse checked BP on R upper arm: 75/45. pt not appropriate for PT tx at this time due to low BP. will f/u . M4 PT-IP Mobility and Gait Start: 08/20/18 12:31 Freq: NEEDED Status: Active Protocol: Document 08/20/18 10:35 AB (Rec: 08/20/18 12:52 AB [id number]) PT-Bed Mobility Assessment Supine to Sit Supine to Sit Contact Guard Assistance Sit to Supine Sit to Supine Contact Guard Assistance Scooting Scooting to Edge of Bed Contact Guard Assistance Minimal Assistance PT-Transfer Assessment Sit to and From Stand Sit to and from Stand Minimal Assistance 1 Person Assistance Use of Upper Extremities Equipment Transfer Assistive Device Gait Belt Front Wheeled Walker Orthotic/Prosthetic Devices or Brace: No Comments Mobility Comments BP in supine: 96/51 pt completed supine to sit CGA and cues. c/o slight dizziness. BP: 87/57. pt sat on EOB for ~ 2-3 min and BP checked again: 116/82. pt completed sit to stand min A and cues. c/o dizziness with standing and pt instructed to sit back down. BP checked: 81 /45. pt wanting to use the toilet but due to decrease BP, instructed pt to lay back in bed. nurse informed and recommended pt to use bed chacko at this time. BP checked in supine: 116/42. asked pt if willing to get up again and stated later in the afternoon. Left pt with nursing assisting pt in room Gait Assessment Comments Gait Comments unable at the time due to decrease BP in standing PT-Balance Assessment Sitting Balance and Reactions Static Sitting Balance Ability Good Dynamic Sitting Balance Ability Fair Standing Balance and Reactions Static Standing Balance Ability Fair Dynamic Standing Balance Ability Fair Device Used FWW M5 PT-IP Objective Assessments Start: 08/20/18 12:31 Freq: NEEDED Status: Active Protocol: Document 08/20/18 10:35 AB (Rec: 08/20/18 12:52 AB [id number]) Orientation Orientation/Cognition Level of Alertness Alert Orientation Name Age Place Situation Safety Awareness Decreased Safety Awareness Memory Description Short Term Impaired Lacing Presser Impaired Gross Range of Motion Lower Extremity ROM Assessment Within Functional Limits Strength Lower Extremity Strength Assessment Right Impaired Knee 4-/5 Sensation Assessment Sensation Gross Sensation WNL M6 PT-IP Treatment Start: 08/20/18 12:31 Freq: NEEDED Status: Active Protocol: Document 08/20/18 10:35 AB (Rec: 08/20/18 12:52 AB [id number]) Physical Therapy Treatment Exercises Exercises Ankle Pumps Heel Slides Education Education Provided Precautions Weight Bearing Status Post-Op Packet Safety Other Treatments Other Treatment Performed pt requires cues to recall hip precautions M7 PT-IP Assessment and Plan Start: 08/20/18 12:31 Freq: NEEDED Status: Active Protocol: Document 08/20/18 10:35 AB (Rec: 08/20/18 12:52 AB [id number]) PT Summary Assessment and Plan Potential Rehabilitation Potential Good Status of Condition at Evaluation Evolving Summary Impairments Pain ROM Strength Balance Coordination Sensation Tone Cognition Bed Mobility Transfers Gait Activity Tolerance Assessment Summary pt requiring one person assist with mobility and unable to tolerate much activity today with decrease BP in standing. Pt will benefit from SNF rehab to improve strength and mobility prior to d/c home. Goals Bed Mobility Goal Standby Assistance Transfer Goal Standby Assistance Front Wheeled Walker Gait Goal Standby Assistance Front Wheel Walker Gait Distance 100 Days to Meet Goals 3 Frequency of Treatment Frequency Of Treatment Twice a Day Treatment Plan Physical Therapy Treatment Plan Bed Mobility Training Transfer Training Gait Training Therapeutic Exercise Balance Retraining Post Op Education Discharge Planning Hot or Cold Pack Neuromuscular Re-ed Coordination Retraining Manual Therapy Recommendations To Nursing Amount of Assist Needed 1 Person Assist Discharge Recommendations PT Discharge Recommendations SNF Rehab
--- NOTE | 2018-08-20 15:08 | PC.NURSE ---
Ortho: BP 116 this am systolic. Discussed meds with pt who reports she usually runs low. Sometimes her bp was in the 80's systolic and she reported she would take her meds so they were given. later this am was 70's systolic and PT was held. This afternoon was found to have a bp of 65/45 on the lt arm and 75/45 on the rt arm. She reports she is asymptomatic - no dizziness, feeling lightheaded, is watching tv. Discussed more with pt about her meds and bp. She reports she was down into the 70's sometimes before at home and her bp meds were held, however her industrial management teacher restarted med. MD called, see new orders. Discussed IVF bolus and running IVF for now. Pt reports hx of heart failure and not to long ago she had to stay in the hospital for 5-6 days. She doesn't want that to happen again. Discussed sxs of chf. She is to call if she feels sob at all. She was agreeable to allow fluid bolus to be given. Staff will watch for sxs of fluid overload. Ortho - has been doing well. PPP, feet =/warm. Trace edema. brisk cap refill. Minimal pain and has been controlled with 1 tramadol and 1 oxycodone. Cont w/poc.
--- NOTE | 2018-08-20 15:57 | OT.IP.TRT ---
Current Diagnoses Unilateral primary osteoarthritis, right hip (08/19/18) Pain in right hip (08/19/18) Presence of unspecified artificial hip joint (08/19/18) Surgery Performed Operation Date: 08/19/18 13:45 Actual Procedures p Total Hip Arthroplasty(Right) - Rebecca Stiles MD Occupational Therapy Treatment Note M3 OT- IP Subjective and Pain Start: 08/20/18 15:56 Freq: Status: Active Protocol: Document 08/20/18 15:56 [facility] (Rec: 08/20/18 15:56 [facility] [id number]) OT- Subjective Occupational Therapy Visit Type Type Patient Unavailable Notes Per nursing, pt having low BP and therefore wait to do OT eval tomorrow.
[2018-08-20] MEDS: SODIUM CHLORIDE 0.9% 1,000 ML 100 ML IV ×2 (16:13→21:08)
[2018-08-20] MEDS: Budesonide-Formoterol [Symbicort] 2 EACH INHALATION (16:45)
[2018-08-20] MEDS: ATORVASTATIN 20 MG TABLET 40 MG PO (20:41)
--- NOTE | 2018-08-20 20:53 | PC.NURSE ---
08/20/2018 HS insulin not given. patient's BG is 169; below parameters for insulin.
--- NOTE | 2018-08-20 22:48 | PC.NURSE ---
SHIFT NOTE A&Ox3, pleasant and cooperative with care. pt denies any N/V, dizziness at rest; verbalized understanding of fall/safety precautions due to hypotension. R hip bolivar and hemovac intact. CMS intact, denies any numbness/tingling. pt up to use BSC, initially c/o lightheadedness when dangling at the bedside but also states that she has not been out of bed all day. requires 1PA with FWW, able to transfer to BS without difficulties or any further complaints of lightheadedness. states pain is tolerable, rated 2-3/10 and declined PRN tramadol. call light within reach.
[2018-08-21] VITALS (9 sets, daily range): BP systolic 110–146; BP diastolic 55–82; PULSE 92–103; RESP 16–20; TEMP 36.6–37; O2SAT 96–99
[2018-08-21] MEDS: Budesonide-Formoterol [Symbicort] 2 EACH INHALATION ×2 (05:07→18:01)
[2018-08-21] MEDS: TIOTROPIUM BROMIDE 18 MCG INHALER INH (05:07)
[2018-08-21] MEDS: IBUPROFEN 600 MG TABLET PO (05:40)
[2018-08-21] MEDS: SODIUM CHLORIDE 0.9% 1,000 ML 100 ML IV ×2 (07:28→16:53)
--- NOTE | 2018-08-21 07:40 | PM.PN.1 ---
Subjective Date Patient Seen: 08/21/18 Time Patient Seen: 07:40 Interval history: NO SIGNIFICANT ISSUES OVERNIGHT FEELING WELL NO FEVER OR CHILLS PAIN WELL CONTROLLED Exam Vital Signs (past 8 hours): - 08/21/18 03:30 08/21/18 05:08 Temperature 98.2 F Pulse Rate 103 H 100 H Respiratory Rate 20 18 Blood Pressure 121/59 L Pulse Oximetry 96 99 Oxygen Delivery Method Room Air Oxygen Flow Rate 0 Narrative Exam Narrative: NO ACUTE DISTRESS. PATIENT IS ALERT ORIENTED X3. VITAL SIGNS STABLE HEAD ATRAUMATIC NORMOCEPHALIC NECK : SUPPLE WITHOUT ADENOPATHY EYE: EOMI, PERRLA, NORMAL CONJUNCTIVA CHEST: REGULAR RATE.. NO RUBS. PMI IS NON DISPLACED. NORMAL S1-S2; NO HEAVE PULMONARY: DECREASED BS OVER THE BASES. MILD BIBASILAR CRACKLES NOTED; NO INCREASED DULLNESS TO PERCUSSION; NO WHEEZING ABDOMEN: SOFT. NONTENDER. BOWEL SOUNDS ARE PRESENT IN ALL 4 QUADRANT. NO GUARDING. NO MASS. EXTREMITIES: 1+ EDEMA. NONPITTING. NO CYANOSIS CLUBBING NOTED. NEURO: CRANIAL NERVES 2-12 GROSSLY INTACT. NO FOCAL NEUROLOGICAL DEFICIT NOTED. MSK: EXPECTED, DISCOMFORT WITH PASSIVE AND ACTIVE RANGE OF MOTION ON THE RIGHT. NO JOINT EFFUSION TO THE OTHER EXTREMITIES. ABLE TO MOVE ALL EXTREMITIES WITHOUT DIFFICULTIES SKIN: NORMAL FOR ETHNICITY; NO ECCHYMOSIS. NO LESION. GOOD TURGOR.; NO RASHES ; REDNESS NOTED ON THE RIGHT HIP. THERE IS A DRESSING ALSO NOTED COVERING A CLOSE SURGICAL INCISION. : NORMAL EXTERNAL GENITALIA. PSYCH : APPROPRIATE MOOD AND AFFECT. ALERT AWAKE ORIENTED X3 Objective Labs Result Diagrams: 08/20/18 05:43 08/20/18 05:43 Assessment & Plan Plan: Assessment/Plan Narrative: IMPRESSION AND PLAN STATUS POST RIGHT HIP TOTAL ARTHROPLASTY. MANAGED BY SURGERY. PATIENT IS CLINICALLY STABLE; CONTINUE TO MONITOR FOR SIGN OF ACUTE COMPLICATIONS. 5 W'S UNCONTROLLED DIABETES. HEMOGLOBIN A1C IS ABOUT 9. BASAL INSULIN INCREASED BY 4 UNITS YESTERDAY. CONT WITH INSULIN SLIDING SCALE. STRICT BLOOD SUGAR CONTROL DIABETIC DIET; PATIENT TO SEE EPITAXIAL REACTOR OPERATOR OUTPATIENT . CONSULT JOB SPECIFICATION WRITER IF NEEDED WELL OUTPATIENT OBESITY. OUTPATIENT MANAGEMENT. LIFESTYLE CHANGES WERE RECOMMENDED COPD PER HISTORY. NO SIGN OR SYMPTOM OF ACUTE EXACERBATION. DUONEB TREATMENT NEEDED; SERIAL CHEST X-RAY OR ABG TO FOLLOW INDICATED POSSIBLE CHF PER HISTORY. LAST ECHOCARDIOGRAM RESULTS ON FILE SHOWING AN EJECTION FRACTION OF ABOUT 65%. THERE IS NO SIGNIFICANT VALVULOPATHY. NOT SURE OF THE [place] OF THIS DIAGNOSIS; THIS IS A NEW A POSSIBILITY PATIENT COULD HAVE HEART FAILURE WITH PRESERVED SYSTOLIC FUNCTION OR DIASTOLIC HEART FAILURE; MONITOR CLOSELY. KEEP ON TELE AT ALL TIME. STRICT I&OS. DAILY WEIGHT WITH SAME SCALE. POSSIBLE CAD PER HISTORY. TREATMENT ABOVE. HYPERTENSION PER HISTORY. CONTINUE HOME MEDICATIONS. PRN MEDICATIONS ARE INDICATED THANK YOU VERY MUCH FOR THIS CONSULT. PATIENT IS STABLE MEDICALLY AND CLEARED FOR DC TO SNF. Quality VTE Deep Vein Thrombosis/Pulmonary Embolism Present on Admission: No
--- NOTE | 2018-08-21 07:45 | P.PN_ITS ---
Subjective Date Patient Seen: 08/21/18 Time Patient Seen: 07:40 Interval history: NO SIGNIFICANT ISSUES OVERNIGHT FEELING WELL NO FEVER OR CHILLS PAIN WELL CONTROLLED Exam Vital Signs (past 8 hours): - 08/21/18 03:30 08/21/18 05:08 Temperature 98.2 F Pulse Rate 103 H 100 H Respiratory Rate 20 18 Blood Pressure 121/59 L Pulse Oximetry 96 99 Oxygen Delivery Method Room Air Oxygen Flow Rate 0 Narrative Exam Narrative: NO ACUTE DISTRESS. PATIENT IS ALERT ORIENTED X3. VITAL SIGNS STABLE HEAD ATRAUMATIC NORMOCEPHALIC NECK : SUPPLE WITHOUT ADENOPATHY EYE: EOMI, PERRLA, NORMAL CONJUNCTIVA CHEST: REGULAR RATE.. NO RUBS. PMI IS NON DISPLACED. NORMAL S1-S2; NO HEAVE PULMONARY: DECREASED BS OVER THE BASES. MILD BIBASILAR CRACKLES NOTED; NO INCREASED DULLNESS TO PERCUSSION; NO WHEEZING ABDOMEN: SOFT. NONTENDER. BOWEL SOUNDS ARE PRESENT IN ALL 4 QUADRANT. NO GUARDING. NO MASS. EXTREMITIES: 1+ EDEMA. NONPITTING. NO CYANOSIS CLUBBING NOTED. NEURO: CRANIAL NERVES 2-12 GROSSLY INTACT. NO FOCAL NEUROLOGICAL DEFICIT NOTED. MSK: EXPECTED, DISCOMFORT WITH PASSIVE AND ACTIVE RANGE OF MOTION ON THE RIGHT. NO JOINT EFFUSION TO THE OTHER EXTREMITIES. ABLE TO MOVE ALL EXTREMITIES WITHOUT DIFFICULTIES SKIN: NORMAL FOR ETHNICITY; NO ECCHYMOSIS. NO LESION. GOOD TURGOR.; NO RASHES ; REDNESS NOTED ON THE RIGHT HIP. THERE IS A DRESSING ALSO NOTED COVERING A CLOSE SURGICAL INCISION. : NORMAL EXTERNAL GENITALIA. PSYCH : APPROPRIATE MOOD AND AFFECT. ALERT AWAKE ORIENTED X3 Objective Labs Result Diagrams: 08/20/18 05:43 08/20/18 05:43 Assessment & Plan Plan: Assessment/Plan Narrative: IMPRESSION AND PLAN STATUS POST RIGHT HIP TOTAL ARTHROPLASTY. MANAGED BY SURGERY. PATIENT IS CLINICALLY STABLE; CONTINUE TO MONITOR FOR SIGN OF ACUTE COMPLICATIONS. 5 W'S UNCONTROLLED DIABETES. HEMOGLOBIN A1C IS ABOUT 9. BASAL INSULIN INCREASED BY 4 UNITS YESTERDAY. CONT WITH INSULIN SLIDING SCALE. STRICT BLOOD SUGAR CONTROL DIABETIC DIET; PATIENT TO SEE SLOT MACHINE KEY PERSON OUTPATIENT . CONSULT LINEN GRADER IF NEEDED WELL OUTPATIENT OBESITY. OUTPATIENT MANAGEMENT. LIFESTYLE CHANGES WERE RECOMMENDED COPD PER HISTORY. NO SIGN OR SYMPTOM OF ACUTE EXACERBATION. DUONEB TREATMENT NEEDED; SERIAL CHEST X-RAY OR ABG TO FOLLOW INDICATED POSSIBLE CHF PER HISTORY. LAST ECHOCARDIOGRAM RESULTS ON FILE SHOWING AN EJECTION FRACTION OF ABOUT 65%. THERE IS NO SIGNIFICANT VALVULOPATHY. NOT SURE OF THE [place] OF THIS DIAGNOSIS; THIS IS A NEW A POSSIBILITY PATIENT COULD HAVE HEART FAILURE WITH PRESERVED SYSTOLIC FUNCTION OR DIASTOLIC HEART FAILURE; MONITOR CLOSELY. KEEP ON TELE AT ALL TIME. STRICT I&OS. DAILY WEIGHT WITH SAME SCALE. POSSIBLE CAD PER HISTORY. TREATMENT ABOVE. HYPERTENSION PER HISTORY. CONTINUE HOME MEDICATIONS. PRN MEDICATIONS ARE INDICATED THANK YOU VERY MUCH FOR THIS CONSULT. PATIENT IS STABLE MEDICALLY AND CLEARED FOR DC TO SNF. Quality VTE Deep Vein Thrombosis/Pulmonary Embolism Present on Admission: No
--- NOTE | 2018-08-21 07:53 | PM.PNPO.1 ---
Subjective Date Patient Seen: 08/21/18 Time Patient Seen: 07:54 Interval history: POD #2 status post right total hip arthroplasty with Dr. Stiles. Patient's pain has been well controlled. She had episodes of orthostatic hypotension yesterday. She has been slow to mobilize. Exam Vital Signs (past 8 hours): - 08/21/18 03:30 08/21/18 05:08 Temperature 98.2 F Pulse Rate 103 H 100 H Respiratory Rate 20 18 Blood Pressure 121/59 L Pulse Oximetry 96 99 Oxygen Delivery Method Room Air Oxygen Flow Rate 0 Narrative Exam Narrative: Patient is sitting in bedside chair no acute distress. She is alert and oriented x3. Dressing on right hip is CDI. Calves are soft, compressible, nontender bilaterally. Sensation intact to light touch throughout bilateral lower extremities. Pulses are symmetrical. She is able to actively dorsiflex plantar flex. Objective Labs Result Diagrams: 08/20/18 05:43 08/20/18 05:43 Assessment & Plan Post-op (1) S/P total hip arthroplasty: Current Visit: Yes Status: Acute (2) Diabetes: Current Visit: Yes Status: Acute (3) Orthostatic hypotension: Current Visit: Yes Status: Acute Postoperative Procedures Operation Date: 08/19/18 13:45 Actual Procedures Side Surgeon p Total Hip Arthroplasty Right Rebecca Stiles MD Patient will continue to mobilize with PT. Patient should transition slowly from sitting, to standing position. Continue current pain management. Patient will DC to SNF tomorrow for continued recovery following hip surgery. Quality VTE Deep Vein Thrombosis/Pulmonary Embolism Present on Admission: No
[2018-08-21] MEDS: INSULIN ASPART 100 UNIT/ML INSULN PEN SUBCUT ×4 (09:05→21:44)
[2018-08-21] MEDS: INSULIN GLARGINE 100 UNIT/ML 3ML PEN 60 UNIT SUBCUT (09:06)
[2018-08-21] MEDS: ASPIRIN EC 81 MG TABLET PO ×2 (09:08→21:40)
[2018-08-21] MEDS: ACETAMINOPHEN 325 MG TABLET 975 MG PO ×3 (09:08→21:40)
[2018-08-21] MEDS: CHOLECALCIFEROL (VITAMIN D3) 1,000 UNIT TABLET 2000 UNIT PO (09:09)
[2018-08-21] MEDS: DOCUSATE 100 MG CAPSULE PO ×2 (09:09→21:40)
[2018-08-21] MEDS: LISINOPRIL 5 MG TABLET PO (09:12)
[2018-08-21] MEDS: METOPROLOL ER 50 MG TABLET 100 MG PO ×2 (09:12→23:53)
[2018-08-21] MEDS: FUROSEMIDE 20 MG TABLET PO (09:12)
[2018-08-21] MEDS: SPIRONOLACTONE 25 MG TABLET PO (09:12)
[2018-08-21] MEDS: TRAMADOL 50 MG TABLET PO ×2 (09:22→21:43)
--- NOTE | 2018-08-21 10:20 | PT.IPTN ---
Current Diagnoses Type 2 diabetes mellitus without complications (08/19/18) Orthostatic hypotension (08/19/18) Unilateral primary osteoarthritis, right hip (08/19/18) Pain in right hip (08/19/18) Presence of unspecified artificial hip joint (08/19/18) Surgery Performed Operation Date: 08/19/18 13:45 Actual Procedures p Total Hip Arthroplasty(Right) - Rebecca Stiles MD Physical Therapy Treatment Note M2 PT-IP Current Condition Start: 08/20/18 12:31 Freq: NEEDED Status: Active Protocol: Document 08/20/18 10:35 AB (Rec: 08/20/18 12:52 AB [id number]) Physical Therapy Current Condition Current Condition Evaluation Date 08/20/18 Treatment Diagnosis S/P R SHEREE; difficulty in walking Onset Date 08/19/18 Precautions Posterior Hip Precautions No Hip Flexion > 90 degrees No Hip Internal Rotation No Hip Adduction Weight Bearing Status Weight Bearing Status Weight Bear as Tolerated M3 PT-IP Subjective Start: 08/20/18 12:31 Freq: NEEDED Status: Active Protocol: Document 08/21/18 10:11 SA (Rec: 08/21/18 10:20 SA [id number]) Subjective Physical Therapy Visit Type Type Treatment Note Visit Start Time 09:30 Visit Stop Time 09:57 Total Visit Minutes 27 Notes BP seated 110/58, standing 139 /58. Number of CRANE OPERATOR CAB Visits 1 Physical Therapy Visit Comments Patient Comments Pt just had morning meds and OT, agreeable to work with PT. Therapy Pain Assessment Pain When Pain Assessed During Mobility Pain Present Pain Present Pain Reported Location Right Hip Intensity 2 Scale Used Numeric (1 - 10) Pain Management Techniques Apply Cold Re-positioning Timing of Activity with Medications M4 PT-IP Mobility and Gait Start: 08/20/18 12:31 Freq: NEEDED Status: Active Protocol: Document 08/21/18 10:11 SA (Rec: 08/21/18 10:20 SA [id number]) PT-Transfer Assessment Sit to and From Stand Sit to and from Stand Contact Guard Assistance Use of Upper Extremities Equipment Transfer Assistive Device Gait Belt Front Wheeled Walker Orthotic/Prosthetic Devices or Brace: No Transfers Transfer Destination Chair Transfer Technique Stand Step Pivot Transfer Ability Level of Assist Contact Guard Assistance Comments Mobility Comments Pt with no C/o dizziness during mobility tasks today, BPs WNLs. Review of safe use of FWW with transfers and posterior hip precautions. Gait Assessment Gait Gait Assistance Required: Contact Guard Assist Distance (Feet) 15 Able to Maintain Weight Bearing Status Yes During Gait Assistive Devices Assistive Device Gait Belt Front Wheeled Walker Orthotic/Prosthetic Devices or Brace: No Gait Deviations General Gait Pattern Antalgic Decreased Stride Length Decreased Feet Clearance Factors Limiting Gait Function Factors Limiting Gait Function Decreased Activity Tolerance Decreased Strength Poor Balance Comments Gait Comments Short diatnace gait training in room with FWW and cues for increasing WBing thorugh RLE. M5 PT-IP Objective Assessments Start: 08/20/18 12:31 Freq: NEEDED Status: Active Protocol: Document 08/20/18 10:35 AB (Rec: 08/20/18 12:52 AB [id number]) Orientation Orientation/Cognition Level of Alertness Alert Orientation Name Age Place Situation Safety Awareness Decreased Safety Awareness Memory Description Short Term Impaired Senior Care Impaired Gross Range of Motion Lower Extremity ROM Assessment Within Functional Limits Strength Lower Extremity Strength Assessment Right Impaired Knee 4-/5 Sensation Assessment Sensation Gross Sensation WNL M6 PT-IP Treatment Start: 08/20/18 12:31 Freq: NEEDED Status: Active Protocol: Document 08/21/18 10:11 SA (Rec: 08/21/18 10:20 SA [id number]) Physical Therapy Treatment Exercises Exercises Ankle Pumps Gluteal Sets Quad Sets Seated Knee Flexion/Extension Education Education Provided Precautions Post-Op Packet Safety Other Treatments Other Treatment Performed Review of hip precautions with mobility tasks, pt able to recall 2/3 but needs clarification of what hip flexion is and what it looks like with sit to stands. M7 PT-IP Assessment and Plan Start: 08/20/18 12:31 Freq: NEEDED Status: Active Protocol: Document 08/21/18 10:11 SA (Rec: 08/21/18 10:20 SA [id number]) PT Summary Assessment and Plan Potential Rehabilitation Potential Good Status of Condition at Evaluation Stable Summary Assessment Summary Pt able to stand at sink and clean dentures, completed several transfers and standing balance with increasing RLE Wbing. Frequency of Treatment Frequency Of Treatment Twice a Day Recommendations To Nursing Amount of Assist Needed 1 Person Assist Discharge Recommendations PT Discharge Recommendations SNF Rehab
--- NOTE | 2018-08-21 10:36 | OT.IP.EVAL ---
Current Diagnoses Type 2 diabetes mellitus without complications (08/19/18) Orthostatic hypotension (08/19/18) Unilateral primary osteoarthritis, right hip (08/19/18) Pain in right hip (08/19/18) Presence of unspecified artificial hip joint (08/19/18) Surgery Performed Operation Date: 08/19/18 13:45 Actual Procedures p Total Hip Arthroplasty(Right) - Rebecca Stiles MD Past Medical History (Last Reviewed 08/19/18 @ 18:09 by Preston Gonzalez DO) Bed sore (Acute) COPD (chronic obstructive pulmonary disease) (Acute) Cataract fragments in both eyes following surgery (Acute) Chronic right hip pain (Acute) Constipation (Acute) Diarrhea (Acute) Echocardiogram abnormal (Acute ~11/27/17) Environmental allergies (Acute) Essential hypertension (Acute) Fatigue (Acute) Former smoker (Acute) Heart failure (Acute) History of UTI (Acute) History of pneumonia (Acute) Hyperlipidemia (Acute) roasterman (current) use of insulin (Acute) NYHA Class III cardiovascular function (Acute) Nausea (Acute) Nonischemic cardiomyopathy (Acute) Primary localized osteoarthrosis of pelvic region (Acute) Rash (Acute) Type 2 diabetes mellitus without complication (Acute) Unexplained weight gain (Acute) Unilateral primary osteoarthritis, right hip (Acute) Weakness (Acute) Surgical History (Last Reviewed 08/19/18 @ 18:09 by Preston Gonzalez DO) History of (Acute) History of cardiac catheterization (Acute ~01/2018) History of tonsillectomy (Acute) Occupational Therapy Inpatient Evaluation/Re-Eval M1 PT/OT-IP Prior Functional Status Start: 08/20/18 12:31 Freq: NEEDED Status: Active Protocol: Document 08/20/18 10:35 AB (Rec: 08/20/18 12:52 AB [id number]) Medical Review Prior Functional Status Medical History Reviewed Yes Communication able to make needs known Mobility and Gait pt stated that she is modified independent with transfers and ambulation and uses 1 SPC on one side and a quad cane on the other side. Activities of Daily Living and IADL's caregiver stated that she assists pt with showers and LB dressng Social History Household Members none Living Arrangements Apartment/Condo Number of Floors (Floors) One Floor Home Environment Standard Height Toilet Tub/Shower Home Equipment Front Wheel Walker Four Wheel Walker Quad Cane Straight Cane Bedside Commode Tub Transfer Bench Lift Recliner Grab Bars In Shower Employment Status Retired Additional Social History Comment Pt has 55 hours LEEANNE; caregiver present during PT session; stated that she comes in MW and Sat for 4-5 hours and that she assists pt with house chores, pt's medical appointments, assists pt with showers. pt has a life alert pendant M1 PT/OT-IP Prior Functional Status Start: 08/20/18 15:56 Freq: NEEDED Status: Active Protocol: Document 08/21/18 09:52 [facility] (Rec: 08/21/18 10:35 [facility] [id number]) Medical Review Prior Functional Status Medical History Reviewed Yes Diet/Fluid Consistency Regular Thin Liquids Communication able to make needs known Mobility and Gait pt stated that she is modified independent with transfers and ambulation and uses 1 SPC on one side and a quad cane on the other side. Activities of Daily Living and IADL's caregiver stated that she assists pt with showers and LB dressng. Pt states needing assist with socks and shoes. Pt having to use tub bench for showering needs. Social History Household Members none Living Arrangements Apartment/Condo Number of Floors (Floors) One Floor Home Environment Standard Height Toilet Tub/Shower Home Equipment Front Wheel Walker Four Wheel Walker Quad Cane Straight Cane Bedside Commode Tub Transfer Bench Lift Recliner Grab Bars In Shower Employment Status Retired Additional Social History Comment Pt has 55 hours LEEANNE; caregiver present during PT session; stated that she comes in MW and Sat for 4-5 hours and that she assists pt with house chores, pt's medical appointments, assists pt with showers. pt has a life alert pendant M2 OT-IP Current Condition Start: 08/20/18 15:56 Freq: Status: Active Protocol: Document 08/21/18 09:52 [facility] (Rec: 08/21/18 10:35 [facility] [id number]) Occupational Therapy Current Condition Current Condition Evaluation Date 08/21/18 Treatment Diagnosis s/p R SHEREE Post Operative Precautions Posterior Hip Precautions No Hip Flexion > 90 degrees No Hip Internal Rotation No Hip Adduction Weight Bearing Status Weight Bearing Status Weight Bear as Tolerated M3 OT- IP Subjective and Pain Start: 08/20/18 15:56 Freq: Status: Active Protocol: Document 08/21/18 09:52 [facility] (Rec: 08/21/18 10:35 [facility] [id number]) OT- Subjective Occupational Therapy Visit Type Type Initial Evaluation Visit Start Time 08:45 Visit Stop Time 09:30 Total Visit Minutes 45 Occupational Therapy Visit Comments Patient Comments Pt wanting to get up. OT Pain Assessment Pain When Pain Assessed During Mobility Pain Present Pain Present Pain Reported Location Right Hip Intensity 5 Scale Used Numeric (1 - 10) M4 OT- IP ADL's Start: 08/20/18 15:56 Freq: Status: Active Protocol: Document 08/21/18 09:52 [facility] (Rec: 08/21/18 10:35 [facility] [id number]) OT ADL-Grooming General Evaluation Grooming Ability Standby Assistance Comments OT Grooming Comments SBA with FWW pt able to wash her hands. OT ADL-Dressing General Eval Lower Body Dressing Ability Maximum Assistance Areas Needing Assistance Socks Comments OT Dressing Comments Educated pt of use of AEd for LB dressing to dress RLE first and use of metal treater and sock aid, Pt able to show good understanding for socks aid. OT ADL-Toileting General Evaluation Toileting Ability Contact Guard Assistance Areas Needing Assistance Manage Clothing Comments OT Toileting Comments Pt able to sit on BSC and show good safety for hip precautions and her arms are long enough to lean to the left and be able to reach herself. Did educate pt another option is to stand up for pericare needs. Pt needing CGA while pulling up brief over her hips. M5 OT- IP IADL's Start: 08/20/18 15:56 Freq: Status: Active Protocol: Document 08/21/18 09:52 [facility] (Rec: 08/21/18 10:35 [facility] [id number]) OT-Instrumental Activities of Daily Living Reconciling Clerk Reconciling Clerk Comments Pt has LEEANNE assist for IADl needs. M6 OT- IP Functional Cognition Start: 08/20/18 15:56 Freq: Status: Active Protocol: Document 08/21/18 09:52 [facility] (Rec: 08/21/18 10:35 [facility] [id number]) OT- Vision and Hearing OT- Hearing Assessment OT- Hearing Assessment WFL M7 OT- IP Mobility and Balance Start: 08/20/18 15:56 Freq: Status: Active Protocol: Document 08/21/18 09:52 [facility] (Rec: 08/21/18 10:35 [facility] [id number]) OT-Transfer Assessment Sit to and From Stand Sit to and from Stand Minimal Assistance Moderate Assistance Transfers Transfer Ability Minimal Assistance 1 Person Assistance Technique Transfer Destination Bedside Commode Chair Transfer Technique Stand Step Pivot Devices Transfer Assistive Devices Gait Belt Front Wheeled Walker Comments Mobility Comments Pt needing MODA to stand from lower surface and reminders to slide right leg forwards before sitting and standing up . OT- Balance Assessment Sitting Balance and Reactions Static Sitting Balance Ability Normal Dynamic Sitting Balance Ability Normal Standing Balance and Reactions Static Standing Balance Ability Good Dynamic Standing Balance Ability Fair M8 OT- IP Objective Assessments Start: 08/20/18 15:56 Freq: Status: Active Protocol: Document 08/21/18 09:52 [facility] (Rec: 08/21/18 10:35 [facility] [id number]) OT Gross Range of Motion Upper Extremity Range of Motion Assessment Within Functional Limits M9 OT- IP Assessment and Plan Start: 08/20/18 15:56 Freq: Status: Active Protocol: Document 08/21/18 09:52 [facility] (Rec: 08/21/18 10:35 [facility] [id number]) OT Summary Assessment and Plan Potential Rehabilitation Potential Good Analytic Complexity at Evaluation Low Summary OT Impairments Pain Balance Functional Cognition Functional Mobility Dressing Toileting Bathing Toilet Transfers Shower Transfers Progress Towards Goals Progressing Toward Goals Slow Progress due to Cognition Assessment Summary Pt Low complexity and main barrier in decreased activity tolerance, strength, needing assist to stand from lower surfaces, and now needing one person assist for ADl and functional mobility. Pt will continue to need education of hip precautions to incorporate for needs. Pt to benefit from skilled rehab. Goals Dressing Goal Minimal Assistance Toileting Goal Standby Assistance Bathing Goal Minimal Assistance Toilet Transfer Goal Standby Assistance Shower Transfer Goal Minimal Assistance Days to Meet Goals 5 Frequency of Treatment Frequency Of Treatment Once a Day Treatment Plan OT Treatment Plan ADL Training Functional Cognition Training Patient/Family Education Discharge Planning Other Treatment Recommendations and Next Shower and continue practice Treatment Focus with AED for dressing needs. Discharge Recommendations OT Discharge Recommendations SNF Rehab Home Equipment Needs metal treater, sock aid, long handled brush
--- NOTE | 2018-08-21 14:45 | PC.NURSE ---
Hemovac drain has pulled out to the start of the perferated section of the catheter tips and is draining onto pts skin. Hemovac has been d/c'd at 1415. Moderate amt of serousanguinous drainage noted.
--- NOTE | 2018-08-21 15:46 | PT.IPTN ---
Current Diagnoses Type 2 diabetes mellitus without complications (08/19/18) Orthostatic hypotension (08/19/18) Unilateral primary osteoarthritis, right hip (08/19/18) Pain in right hip (08/19/18) Presence of unspecified artificial hip joint (08/19/18) Surgery Performed Operation Date: 08/19/18 13:45 Actual Procedures p Total Hip Arthroplasty(Right) - Rebecca Stiles MD Physical Therapy Treatment Note M2 PT-IP Current Condition Start: 08/20/18 12:31 Freq: NEEDED Status: Active Protocol: Document 08/20/18 10:35 AB (Rec: 08/20/18 12:52 AB [id number]) Physical Therapy Current Condition Current Condition Evaluation Date 08/20/18 Treatment Diagnosis S/P R SHEREE; difficulty in walking Onset Date 08/19/18 Precautions Posterior Hip Precautions No Hip Flexion > 90 degrees No Hip Internal Rotation No Hip Adduction Weight Bearing Status Weight Bearing Status Weight Bear as Tolerated M3 PT-IP Subjective Start: 08/20/18 12:31 Freq: NEEDED Status: Active Protocol: Document 08/21/18 15:34 SA (Rec: 08/21/18 15:45 SA [id number]) Subjective Physical Therapy Visit Type Type Treatment Note Visit Start Time 14:59 Visit Stop Time 13:25 Total Visit Minutes 26 Notes Pt with high blood sugar levels after lunch but Nursing cleared for PT. 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 Therapy Pain Assessment Pain When Pain Assessed During Mobility Pain Present Pain Present Pain Reported Location Right Hip Intensity 2 Scale Used Numeric (1 - 10) Pain Management Techniques Apply Cold Re-positioning Timing of Activity with Medications M4 PT-IP Mobility and Gait Start: 08/20/18 12:31 Freq: NEEDED Status: Active Protocol: Document 08/21/18 15:34 SA (Rec: 08/21/18 15:45 SA [id number]) PT-Bed Mobility Assessment Rolling Type of Rolling Roll to Left Supine to Sit Supine to Sit Contact Guard Assistance Sit to Supine Sit to Supine Contact Guard Assistance Scooting Scooting to Edge of Bed Contact Guard Assistance PT-Transfer Assessment Sit to and From Stand Sit to and from Stand Contact Guard Assistance Use of Upper Extremities Equipment Transfer Assistive Device Gait Belt Front Wheeled Walker Orthotic/Prosthetic Devices or Brace: No Transfers Transfer Destination Chair Toilet Transfer Technique Stand Step Pivot Transfer Ability Level of Assist Contact Guard Assistance Comments Mobility Comments PT completed transfers to/from toilet with, CGA, FWW and grab bar. Cues for precautions and safety. Gait Assessment Gait Gait Assistance Required: Contact Guard Assist Distance (Feet) 75 Able to Maintain Weight Bearing Status Yes During Gait Assistive Devices Assistive Device Gait Belt Front Wheeled Walker Orthotic/Prosthetic Devices or Brace: No Gait Deviations General Gait Pattern Antalgic Decreased Stride Length Decreased Feet Clearance Factors Limiting Gait Function Factors Limiting Gait Function Decreased Activity Tolerance Decreased Strength Poor Balance Comments Gait Comments Gait training in [place] and room with cues for safe turning and use of FWW, upright posture and increasing WBing through RLE. PT-Balance Assessment Comments Other Balance Tests/Deviations/Treatment Standing dynamic balance : training at FWW for donning/ doffing gown and brief with CGA and min cues. M5 PT-IP Objective Assessments Start: 08/20/18 12:31 Freq: NEEDED Status: Active Protocol: Document 08/20/18 10:35 AB (Rec: 08/20/18 12:52 AB [id number]) Orientation Orientation/Cognition Level of Alertness Alert Orientation Name Age Place Situation Safety Awareness Decreased Safety Awareness Memory Description Short Term Impaired Penitentiary Impaired Gross Range of Motion Lower Extremity ROM Assessment Within Functional Limits Strength Lower Extremity Strength Assessment Right Impaired Knee 4-/5 Sensation Assessment Sensation Gross Sensation WNL M6 PT-IP Treatment Start: 08/20/18 12:31 Freq: NEEDED Status: Active Protocol: Document 08/21/18 15:45 SA (Rec: 08/21/18 15:46 SA [id number]) Physical Therapy Treatment Exercises Exercises Ankle Pumps Gluteal Sets Education Education Provided Precautions Post-Op Packet Safety M7 PT-IP Assessment and Plan Start: 08/20/18 12:31 Freq: NEEDED Status: Active Protocol: Document 08/21/18 15:34 SA (Rec: 08/21/18 15:45 SA [id number]) PT Summary Assessment and Plan Summary Assessment Summary Continued review of hip precautions with mobility tasks and safety training. Improved ambulation ability and distance. Frequency of Treatment Frequency Of Treatment Twice a Day Recommendations To Nursing Amount of Assist Needed 1 Person Assist Discharge Recommendations PT Discharge Recommendations SNF Rehab
[2018-08-21] MEDS: ATORVASTATIN 20 MG TABLET 40 MG PO (21:39)
[2018-08-22] MEDS: IBUPROFEN 600 MG TABLET PO (03:09)
[2018-08-22] MEDS: SODIUM CHLORIDE 0.9% 1,000 ML 100 ML IV (03:10)
[2018-08-22 03:28] VITALS: BP 153/72; PULSE 91; RESP 17; TEMP 36.5; O2SAT 99
[2018-08-22 05:58] VITALS: O2SAT 98
[2018-08-22] MEDS: Budesonide-Formoterol [Symbicort] 2 EACH INHALATION (05:58)
[2018-08-22] MEDS: TIOTROPIUM BROMIDE 18 MCG INHALER INH (05:58)
--- NOTE | 2018-08-22 07:00 | PC.NURSE ---
pt a&ox4, VSS on RA, normal-tensive throughout shift, some elevated HR trending mid 90's-low 100's. pt complained of ashwin horses to bilateral lower extremities, up to chair and up in room seemed to reduce symptom. PRN ibuprofen utilized for pain, pt apprehensive to narcotic medications, wishing to utilize non-narcotic analgesics first.
--- NOTE | 2018-08-22 07:26 | PM.DS.1 ---
History of Present Illness Date Patient Seen: 08/22/18 Chief complaint: total hip arthroplasty right [id number] Narrative: Patient seen bedside s/p R. posterior SHEREE with Dr. Stiles on 08/19/18. Patient is doing well, is not currently in any pain. She does complain of muscle cramps overnight, but these have since subsided. She denies CP, SOB, N/V, or calf pain. Discharge Providers Date of admission: 08/19/18 10:09 Primary care physician: Umesh Duncan MD Consults: 08/07/18 11:37 Consult to Anesthesiology Routine Comment: Anes. Review: Surgeon Request - Cardiac Consulting Provider: Anesthesiologist Reason for consultation: Clearance provided 08/19/18 11:59 Consult to Anesthesiology Routine Comment: Consulting Provider: Anesthesiologist Reason for consultation: Regional block for post operative pain control 08/19/18 17:35 Consult to Discharge Planning Routine Comment: wants ecf Consult to Physical Therapy Evaluate & Treat Comment: posterior Physician Instructions: post op SHEREE protocol Consult to Respiratory Therapy Evaluate & Treat Comment: Physician Instructions: Evaluate and treat 08/20/18 09:12 Consult to Occupational Therapy Evaluate & Treat Comment: Physician Instructions: Evaluate and treat 08/20/18 11:07 Consult to Hospitalist Service Routine Comment: hospitalist to see for medical management. Consulting Provider: Preston Gonzalez Reason for consultation: hospitalist to see for medical management Has provider been notified: Yes Discharge provider: Jamia Kelley PA-C Discharge Date: 08/22/18 Summary Discharge Diagnosis: Right hip osteoarthritis Hospital Course: Patient was admitted to the hospital s/p R. posterior SHEREE with Dr. Stiles on 08/19/18. Patient tolerated the procedure well with no major complications. She was transferred to the acute care floor where she was placed on the standard joint replacement pathway and protocol. She was seen by PT/OT who recommended that the patient be discharged to a SNF. She was stable and ready for d/c to [facility] on 08/22/18. Status at Discharge Cognitive/behavioral status at discharge: Alert & oriented x3 Functional status at discharge: uses cane/walker Overall status at discharge: patient is progressing back to baseline Time Spent with Patient Less than 30 minutes Exam Vital Signs (past 8 hours): - 08/21/18 23:50 08/21/18 23:53 08/22/18 03:28 Temperature 98.2 F 97.7 F Pulse Rate 95 H 99 H 91 H Respiratory Rate 19 17 Blood Pressure 129/82 129/82 153/72 H Pulse Oximetry 97 99 08/22/18 05:58 Temperature Pulse Rate Respiratory Rate Blood Pressure Pulse Oximetry 98 Fraction of Inspired Oxygen 21 Oxygen Delivery Method Room Air Oxygen Flow Rate 0 Narrative Exam Narrative: WDWN NAD A&OX3. FREDERICK dressing on right hip is clean, dry, and intact. She is NVI in this extremity with soft and compressible calves. No erythema/edema noted. Objective Labs Result Diagrams: 08/20/18 05:43 08/20/18 05:43 Discharge Plan Discharge Plan Patient Disposition: SNF Transfer to: [facility] I certify the postop hospital chcf care is medically necessary on a continuing basis for any conditions for which he/ she received care during this hospitalization.: Yes The receiving facility has agreed to accept transfer and provide medical treatment.: Yes Discharge Med Rec/Prescriptions Prescriptions: New acetaminophen 325 mg Tablet 975 mg PO TID Qty: 0 RF: 0 docusate sodium 100 mg Capsule 100 mg PO BID Qty: 0 RF: 0 ibuprofen 600 mg Tablet 600 mg PO Q6HR PRN (Reason: Pain, Mild (1-3)) Qty: 0 RF: 0 oxycodone 5 mg tablet 5 mg PO Q4-6H PRN (Reason: pain) Qty: 15 RF: 0 Continue furosemide 40 mg Tablet 40 mg PO DAILY PRN (Reason: Weight Gain) RF: 0 ondansetron HCl 4 mg Tablet 4 mg PO PRN PRN (Reason: Nausea) RF: 0 metoprolol succinate 100 mg Tablet Extended Release 24 Hr 100 mg PO BID RF: 0 spironolactone 25 mg Tablet 25 mg PO DAILY RF: 0 lisinopril 5 mg Tablet 5 mg PO BID RF: 0 albuterol sulfate [Ventolin HFA] 90 mcg/actuation Hfa Aerosol Inhaler 2 inh Inhalation Q3-4H PRN (Reason: Wheezing) RF: 0 insulin aspart U-100 100 unit/mL Insulin Pen 10 unit SUBCUT DAILY RF: 0 tiotropium bromide [Spiriva with HandiHaler] 18 mcg Capsule, W/Inhalation Device 1 cap INHALATION DAILY RF: 0 budesonide-formoterol 160-4.5 mcg/actuation Hfa Aerosol Inhaler 2 puff INHALATION BID RF: 0 insulin glargine 100 unit/mL (3 mL) Insulin Pen 60 unit SUBCUT DAILY RF: 0 atorvastatin [Lipitor] 40 mg Tablet 40 mg PO BEDTIME RF: 0 calcium carbonate [Calcium 600] 600 mg calcium (1,500 mg) Tablet 1 tab PO DAILY RF: 0 furosemide 20 mg Tablet 20 mg PO DAILY RF: 0 cholecalciferol (vitamin D3) [Vitamin D3] 2,000 unit Capsule 2,000 unit PO DAILY RF: 0 omega [id number]-ulp-fish oil [Fish Oil] 1,000 mg (120 mg-180 mg) Capsule 1 cap PO DAILY RF: 0 Lactobac 40-Bifido 3-S.thermop [Probiotic] 100 billion cell Capsule 1 cap PO DAILY RF: 0 Discontinued tramadol 50 mg Tablet 50 - 100 mg PO Q8H PRN (Reason: Pain) RF: 0 Follow up/Referrals: Rebecca Stiles MD [Physician] - (Follow up in the office at your previously scheduled appointment.) Discharge Health Status Precautions: [place] Provider Discharge Instructions Diet: Carb-consistent/Diabetic Activity: Weightbearing as tolerated, use walker to ambulate until cleared by PT. Follow posterior hip precautions. Cold/Heat Therapy: Apply ice to surgical site 20 minutes at a time at least hourly while awake. Skin/Wound/Dressing Care Report to your healthcare provider any signs of infection, such as:: chills, fever, night sweats, increased pain, unusual drainage and unusual redness Dressing: Keep FREDERICK dressing clean, dry, and intact. Will remove at first post-op visit in 5-7 days. Special Rehabilitation Services Reason for rehabilitation: Post-operative therapy Rehab type: Physical therapy and Occupational therapy Visit Report/Discharge Packet Instructions: DI for Hip Replacement, DI for Constipation, Insulin Types, Insulin Glargine (rDNA origin) Injection, Insulin Aspart (rDNA Origin) Injection, Insulin Injection Discharge Data Primary Care Provider: Umesh Duncan Attending Provider: Rebecca Stiles Admit Date/Time: 08/19/18 10:09 Quality VTE Deep Vein Thrombosis/Pulmonary Embolism Present on Admission: No
--- NOTE | 2018-08-22 07:37 | P.DS_ITS ---
History of Present Illness Date Patient Seen: 08/22/18 Chief complaint: total hip arthroplasty right [id number] Narrative: Patient seen bedside s/p R. posterior SHEREE with Dr. Stiles on 08/19/18. Patient is doing well, is not currently in any pain. She does complain of muscle cramps overnight, but these have since subsided. She denies CP, SOB, N/V , or calf pain. Discharge Providers Date of admission: 08/19/18 10:09 Primary care physician: Umesh Duncan MD Consults: 08/07/18 11:37 Consult to Anesthesiology Routine Comment: Anes. Review: Surgeon Request - Cardiac Consulting Provider: Anesthesiologist Reason for consultation: Clearance provided 08/19/18 11:59 Consult to Anesthesiology Routine Comment: Consulting Provider: Anesthesiologist Reason for consultation: Regional block for post operative pain control 08/19/18 17:35 Consult to Discharge Planning Routine Comment: wants ecf Consult to Physical Therapy Evaluate & Treat Comment: posterior Physician Instructions: post op SHEREE protocol Consult to Respiratory Therapy Evaluate & Treat Comment: Physician Instructions: Evaluate and treat 08/20/18 09:12 Consult to Occupational Therapy Evaluate & Treat Comment: Physician Instructions: Evaluate and treat 08/20/18 11:07 Consult to Hospitalist Service Routine Comment: hospitalist to see for medical management. Consulting Provider: Preston Gonzalez Reason for consultation: hospitalist to see for medical management Has provider been notified: Yes Discharge provider: Jamia Kelley PA-C Discharge Date: 08/22/18 Summary Discharge Diagnosis: Right hip osteoarthritis Hospital Course: Patient was admitted to the hospital s/p R. posterior SHEREE with Dr. Stiles on 08/19/18. Patient tolerated the procedure well with no major complications. She was transferred to the acute care floor where she was placed on the standard joint replacement pathway and protocol. She was seen by PT/OT who recommended that the patient be discharged to a SNF. She was stable and ready for d/c to [facility] on 08/22/18. Status at Discharge Cognitive/behavioral status at discharge: Alert & oriented x3 Functional status at discharge: uses cane/walker Overall status at discharge: patient is progressing back to baseline Time Spent with Patient Less than 30 minutes Exam Vital Signs (past 8 hours): - 08/21/18 23:50 08/21/18 23:53 08/22/18 03:28 Temperature 98.2 F 97.7 F Pulse Rate 95 H 99 H 91 H Respiratory Rate 19 17 Blood Pressure 129/82 129/82 153/72 H Pulse Oximetry 97 99 08/22/18 05:58 Temperature Pulse Rate Respiratory Rate Blood Pressure Pulse Oximetry 98 Fraction of Inspired Oxygen 21 Oxygen Delivery Method Room Air Oxygen Flow Rate 0 Narrative Exam Narrative: WDWN NAD A&OX3. FREDERICK dressing on right hip is clean, dry, and intact. She is NVI in this extremity with soft and compressible calves. No erythema/edema noted. Objective Labs Result Diagrams: 08/20/18 05:43 08/20/18 05:43 Discharge Plan Discharge Plan Patient Disposition: SNF Transfer to: [facility] I certify the postop hospital correction care is medically necessary on a continuing basis for any conditions for which he/ she received care during this hospitalization.: Yes The receiving facility has agreed to accept transfer and provide medical treatment.: Yes Discharge Med Rec/Prescriptions Prescriptions: New acetaminophen 325 mg Tablet 975 mg PO TID Qty: 0 RF: 0 docusate sodium 100 mg Capsule 100 mg PO BID Qty: 0 RF: 0 ibuprofen 600 mg Tablet 600 mg PO Q6HR PRN (Reason: Pain, Mild (1-3)) Qty: 0 RF: 0 oxycodone 5 mg tablet 5 mg PO Q4-6H PRN (Reason: pain) Qty: 15 RF: 0 Continue furosemide 40 mg Tablet 40 mg PO DAILY PRN (Reason: Weight Gain) RF: 0 ondansetron HCl 4 mg Tablet 4 mg PO PRN PRN (Reason: Nausea) RF: 0 metoprolol succinate 100 mg Tablet Extended Release 24 Hr 100 mg PO BID RF: 0 spironolactone 25 mg Tablet 25 mg PO DAILY RF: 0 lisinopril 5 mg Tablet 5 mg PO BID RF: 0 albuterol sulfate [Ventolin HFA] 90 mcg/actuation Hfa Aerosol Inhaler 2 inh Inhalation Q3-4H PRN (Reason: Wheezing) RF: 0 insulin aspart U-100 100 unit/mL Insulin Pen 10 unit SUBCUT DAILY RF: 0 tiotropium bromide [Spiriva with HandiHaler] 18 mcg Capsule, W/Inhalation Device 1 cap INHALATION DAILY RF: 0 budesonide-formoterol 160-4.5 mcg/actuation Hfa Aerosol Inhaler 2 puff INHALATION BID RF: 0 insulin glargine 100 unit/mL (3 mL) Insulin Pen 60 unit SUBCUT DAILY RF: 0 atorvastatin [Lipitor] 40 mg Tablet 40 mg PO BEDTIME RF: 0 calcium carbonate [Calcium 600] 600 mg calcium (1,500 mg) Tablet 1 tab PO DAILY RF: 0 furosemide 20 mg Tablet 20 mg PO DAILY RF: 0 cholecalciferol (vitamin D3) [Vitamin D3] 2,000 unit Capsule 2,000 unit PO DAILY RF: 0 omega 4-jdf-gxi-fish oil [Fish Oil] 1,000 mg (120 mg-180 mg) Capsule 1 cap PO DAILY RF: 0 Lactobac 40-Bifido 3-S.thermop [Probiotic] 100 billion cell Capsule 1 cap PO DAILY RF: 0 Discontinued tramadol 50 mg Tablet 50 - 100 mg PO Q8H PRN (Reason: Pain) RF: 0 Follow up/Referrals: Rebecca Stiles MD [Physician] - (Follow up in the office at your previously scheduled appointment.) Discharge Health Status Precautions: [place] Provider Discharge Instructions Diet: Carb-consistent/Diabetic Activity: Weightbearing as tolerated, use walker to ambulate until cleared by PT. Follow posterior hip precautions. Cold/Heat Therapy: Apply ice to surgical site 20 minutes at a time at least hourly while awake. Skin/Wound/Dressing Care Report to your healthcare provider any signs of infection, such as:: chills, fever, night sweats, increased pain, unusual drainage and unusual redness Dressing: Keep FREDERICK dressing clean, dry, and intact. Will remove at first post- op visit in 5-7 days. Special Rehabilitation Services Reason for rehabilitation: Post-operative therapy Rehab type: Physical therapy and Occupational therapy Visit Report/Discharge Packet Instructions: DI for Hip Replacement, DI for Constipation, Insulin Types, Insulin Glargine (rDNA origin) Injection, Insulin Aspart (rDNA Origin) Injection , Insulin Injection Discharge Data Primary Care Provider: Umesh Duncan Attending Provider: Rebecca Stiles Admit Date/Time: 08/19/18 10:09 Quality VTE Deep Vein Thrombosis/Pulmonary Embolism Present on Admission: No
[2018-08-22 08:00] VITALS: BP 140/80; PULSE 89; RESP 16; TEMP 36.4; O2SAT 97
[2018-08-22] MEDS: ACETAMINOPHEN 325 MG TABLET 975 MG PO (08:40)
[2018-08-22] MEDS: SPIRONOLACTONE 25 MG TABLET PO (08:41)
[2018-08-22] MEDS: LISINOPRIL 5 MG TABLET PO (08:41)
[2018-08-22] MEDS: ASPIRIN EC 81 MG TABLET PO (08:41)
[2018-08-22] MEDS: FUROSEMIDE 20 MG TABLET PO (08:42)
[2018-08-22] MEDS: METOPROLOL ER 50 MG TABLET 100 MG PO (08:42)
[2018-08-22] MEDS: DOCUSATE 100 MG CAPSULE PO (08:42)
[2018-08-22] MEDS: INSULIN GLARGINE 100 UNIT/ML 3ML PEN 60 UNIT SUBCUT (08:45)
[2018-08-22] MEDS: INSULIN ASPART 100 UNIT/ML INSULN PEN SUBCUT ×2 (08:45→12:25)
[2018-08-22] MEDS: CHOLECALCIFEROL (VITAMIN D3) 1,000 UNIT TABLET 2000 UNIT PO (08:46)
--- NOTE | 2018-08-22 09:31 | PT.IPTN ---
Current Diagnoses Type 2 diabetes mellitus without complications (08/19/18) Orthostatic hypotension (08/19/18) Unilateral primary osteoarthritis, right hip (08/19/18) Pain in right hip (08/19/18) Presence of unspecified artificial hip joint (08/19/18) Surgery Performed Operation Date: 08/19/18 13:45 Actual Procedures p Total Hip Arthroplasty(Right) - Rebecca Stiles MD Physical Therapy Treatment Note M2 PT-IP Current Condition Start: 08/20/18 12:31 Freq: NEEDED Status: Active Protocol: Document 08/20/18 10:35 AB (Rec: 08/20/18 12:52 AB [id number]) Physical Therapy Current Condition Current Condition Evaluation Date 08/20/18 Treatment Diagnosis S/P R SHEREE; difficulty in walking Onset Date 08/19/18 Precautions Posterior Hip Precautions No Hip Flexion > 90 degrees No Hip Internal Rotation No Hip Adduction Weight Bearing Status Weight Bearing Status Weight Bear as Tolerated M3 PT-IP Subjective Start: 08/20/18 12:31 Freq: NEEDED Status: Active Protocol: Document 08/22/18 09:23 SA (Rec: 08/22/18 09:31 SA [id number]) Subjective Physical Therapy Visit Type Type Treatment Note Visit Start Time 08:39 Visit Stop Time 09:04 Total Visit Minutes 25 Notes Pt sitting up in chair, agreeable to PT after taking morning meds. 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 Rates hip pain as 4/10. Therapy Pain Assessment Pain When Pain Assessed During Mobility Pain Present Pain Present Pain Reported Location Right Hip Intensity 4 Scale Used Numeric (1 - 10) Pain Management Techniques Apply Cold Re-positioning Timing of Activity with Medications M4 PT-IP Mobility and Gait Start: 08/20/18 12:31 Freq: NEEDED Status: Active Protocol: Document 08/22/18 09:23 SA (Rec: 08/22/18 09:31 SA [id number]) PT-Transfer Assessment Sit to and From Stand Sit to and from Stand Contact Guard Assistance Use of Upper Extremities Equipment Orthotic/Prosthetic Devices or Brace: No Transfers Transfer Destination Chair Transfer Technique Stand Step Pivot Transfer Ability Level of Assist Contact Guard Assistance Comments Mobility Comments Pt continues to self limit WBing through RLE, cues for heel down and increasing RLE WBing with standing mobility. Gait Assessment Gait Gait Assistance Required: Contact Guard Assist Distance (Feet) 85 Able to Maintain Weight Bearing Status Yes During Gait Assistive Devices Assistive Device Gait Belt Front Wheeled Walker Orthotic/Prosthetic Devices or Brace: No Gait Deviations General Gait Pattern Antalgic Decreased Stride Length Decreased Feet Clearance Flexed Trunk Factors Limiting Gait Function Factors Limiting Gait Function Decreased Activity Tolerance Decreased Strength Poor Balance Poor Safety Awareness Comments Gait Comments Cues for upright posture, increasing WBing thorugh RLE and forward visual scanning. PT-Balance Assessment Comments Other Balance Tests/Deviations/Treatment Standing static/dynamic : balance training completed with limited UE support and cues for upright posture. M5 PT-IP Objective Assessments Start: 08/20/18 12:31 Freq: NEEDED Status: Active Protocol: Document 08/20/18 10:35 AB (Rec: 08/20/18 12:52 AB [id number]) Orientation Orientation/Cognition Level of Alertness Alert Orientation Name Age Place Situation Safety Awareness Decreased Safety Awareness Memory Description Short Term Impaired Detention Impaired Gross Range of Motion Lower Extremity ROM Assessment Within Functional Limits Strength Lower Extremity Strength Assessment Right Impaired Knee 4-/5 Sensation Assessment Sensation Gross Sensation WNL M6 PT-IP Treatment Start: 08/20/18 12:31 Freq: NEEDED Status: Active Protocol: Document 08/22/18 09:23 SA (Rec: 08/22/18 09:31 [id number]) Physical Therapy Treatment Exercises Exercises Ankle Pumps Gluteal Sets Quad Sets Seated Knee Flexion/Extension Education Education Provided Precautions Post-Op Packet Safety Other Treatments Other Treatment Performed Continued review of hip precautions with mobility. Pt needs reminders and cues as often forgets. M7 PT-IP Assessment and Plan Start: 08/20/18 12:31 Freq: NEEDED Status: Active Protocol: Document 08/22/18 09:23 SA (Rec: 08/22/18 09:31 [id number]) PT Summary Assessment and Plan Summary Assessment Summary Pt with limiting WBing through RLE during mobility, CGA with transfers and ambulation for safety and needs cues for precautions. Frequency of Treatment Frequency Of Treatment Twice a Day Recommendations To Nursing Amount of Assist Needed 1 Person Assist Discharge Recommendations PT Discharge Recommendations SNF Rehab Other Discharge Recommendations D/C to SNF today
--- NOTE | 2018-08-22 14:27 | CM.DPC ---
DC Note: DC order in place for [facility], pt remains aware and agreeable to plan. CM dental hygiene administrative assistant Setf coordinated details of this DC; cabulance arranged, DC ppk faxed to [facility]. RN and pt remained aware and agreeable. JW
--- NOTE | 2018-08-22 14:52 | PC.NURSE ---
Called [facility] 5 times to give report on this patient and I kept getting transferred to people that would not answer, only voice mails. [facility] admissions nurse was working on the floor. Pt discharged to [facility] at 1400. Pt had an xl bm before she left.
== END 2018-08-22 14:17 | DRG 470 ==
PROVIDERS: Hospitalist; Admitting Provider Orthopaedic Surgery; PCP Family Medicine; Visit Provider Orthopaedic Surgery
PROC: 0SR90JZ Replacement of Right Hip Joint with Synthetic Substitute, Open Approach (ICD-10-PCS; CPT 27130; principal; 2018-08-19 13:45)
DX: M16.11 Unilateral primary osteoarthritis, right hip (principal); I42.8 Other cardiomyopathies; I25.10 Atherosclerotic heart disease of native coronary artery without angina pectoris; J44.9 Chronic obstructive pulmonary disease, unspecified; Z79.4 Long term (current) use of insulin; I65.21 Occlusion and stenosis of right carotid artery; E78.5 Hyperlipidemia, unspecified; I10 Essential (primary) hypertension; Z87.891 Personal history of nicotine dependence; E11.65 Type 2 diabetes mellitus with hyperglycemia; I50.9 Heart failure, unspecified; I95.1 Orthostatic hypotension
CPT/HCPCS: 36415; 72170; 73502; 80053; 82962; 83735; 85025; 94640; 94760; 97116; 97162; 97165; 97530; 97535; C1776; C9290; J0690; J2250; J2274; J2405; J2704; J3370